=== PATIENT | female | born 1970 | race Caucasian/White ===

== ENCOUNTER 2017-01-21 13:31 | Emergency (ER) | payer OTHER, MEDICARE ==
[~2017-01-21] VITALS: Ht 175.3 cm; Wt 102.7 kg
[2017-01-21 13:31] VITALS: BP 158/97; PULSE 126; RESP 24; TEMP 98.7; O2SAT 95
[~2017-01-21 13:31] MED LIST: APRI0.372 PO; CALCTAB23 PO; CYAN1000P SQ; DICY10CA12 PO; FLOR250C PO; HYDR-3580 PO; LEVA500T PO; LISI10TA3 PO; LOPE7.5C PO; LYRI50CA PO; METR-1 PO; NYST15T TOPICAL; OMEG100037 PO; PERC5TAB12 PO; PRED20 PO; PROM25TA5 PO; ZANT150T2 PO
[2017-01-21 13:35] VITALS: BP 158/97; PULSE 120; RESP 24; O2SAT 95
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
[2017-01-21] MEDS ORDERED: ONDANSETRON HCL 4 MG/2 ML VIAL IV PUSH ONE (14:00)
[2017-01-21] MEDS ORDERED: MORPHINE SULFATE 4 MG/ML INJ IV PUSH ONE (14:00)
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
[2017-01-21 14:27] LABS: AUTOMATED NEUTROPHIL # 10.8 TH/MM3 (1.8-7.7); BASOPHIL # 0.1 TH/MM3 (0-0.2); BASOPHIL % 0.6 % (0.0-2.0); EOSINOPHIL # 0.1 TH/MM3 (0-0.4); EOSINOPHIL % 0.5 % (0.0-4.0); HEMATOCRIT 39.8 % (35.0-46.0); LYMPH % 32.1 % (9.0-44.0); LYMPHOCYTE # 6.3 TH/MM3 (1.0-4.8); MEAN CELL VOLUME 83.8 FL (80.0-100.0); MEAN CORPUSCULAR HEMOGLOBIN 27.9 PG (27.0-34.0); MEAN CORPUSCULAR HGB CONC 33.3 % (32.0-36.0); MONO % 12.3 % (0.0-8.0); NEUT % 54.5 % (16.0-70.0); PLATELET COUNT 429 TH/MM3 (150-450); RED BLOOD COUNT 4.76 MIL/MM3 (4.00-5.30); RED CELL DISTRIBUTION WIDTH 14.1 % (11.6-17.2); WHITE BLOOD COUNT 19.8 TH/MM3 (4.0-11.0)
[2017-01-21 14:28] LABS: HEMO FLAGS AUTO DIFF
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
[2017-01-21 14:40] LABS: BICARBONATE 23.5 MEQ/L (21.0-32.0)
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
[2017-01-21 15:00] VITALS: BP 127/81; PULSE 99; RESP 18; O2SAT 96
[2017-01-21] MEDS ORDERED: oxyCODONE/ACETAMINOPHEN 10 MG/325 MG TAB PO ONE (15:00)
[2017-01-21 15:15] LABS: BANDS 2 % (0-6); EOSINOPHILS 1 % (0-4); NEUTROPHIL # MANUAL DIFF 12.1 TH/MM3 (1.8-7.7); POLYS (SEG NEUTROPHILS) 59 % (16-70); WBC DIFF SAMPLE 100
[2017-01-21 15:17] LABS: PLATELET ESTIMATE SMEAR NORMAL (NORMAL); PLATELET MORPHOLOGY NORMAL (NORMAL); SCAN/DIFF FINAL DIFF MANUAL
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
[2017-01-21] MEDS ORDERED: IOHEXOL 350 MG/ML 10 ML VIAL (for RAD DIAG) IV ONE (16:02)
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
[2017-01-21 17:00] VITALS: BP 126/84; PULSE 84; RESP 18; O2SAT 96
== END 2017-01-21 17:18 | disposition home or self-care (01) ==
LOC: NEPE 13:31
DX: R10.84 Generalized abdominal pain (principal); S80.11XA Contusion of right lower leg, initial encounter; V49.40XA Driver injured in collision with unspecified motor vehicles in traffic accident, initial encounter
CPT/HCPCS: 71010; 72170; 73630; 74177; 80048; 84702; 85007; 85027; 96374; 96375; 99284; J2270; J2405; Q9967

== ENCOUNTER 2017-03-08 18:35 | Emergency (ER) | payer MEDICARE, OTHER ==
[~2017-03-08] VITALS: Ht 175.3 cm; Wt 108.7 kg
[~2017-03-08 18:35] MED LIST changes: -DICY10CA12 PO; -HYDR-3580 PO; -LEVA500T PO; -METR-1 PO; -NYST15T TOPICAL
[2017-03-08 18:42] VITALS: BP 179/116; PULSE 110; RESP 16; TEMP 98.6; O2SAT 98
[2017-03-08 20:48] VITALS: BP 197/93; PULSE 102; O2SAT 98
[2017-03-08] MEDS ORDERED: CYCL5TAB PO (20:53)
[2017-03-08] MEDS ORDERED: OXYC-395 PO (20:53)
[2017-03-08] MEDS ORDERED: SODIUM CHLOR 0.9% 1000 ML INJ 1,000 ML IV SCH ×2 (21:20)
[2017-03-08] MEDS ORDERED: SODIUM CHLORIDE 0.9% FLUSH 10 ML FLUSH IV FLUSH PRN (21:30)
[2017-03-08] MEDS ORDERED: methylPREDNISolone SOD SUCC 125 MG/2 ML VIAL IV PUSH ONE (21:30)
[2017-03-08] MEDS ORDERED: ONDANSETRON HCL 4 MG/2 ML VIAL IVP ONE (21:30)
[2017-03-08] MEDS ORDERED: HYDROmorphone HCL PF 2 MG/ML VIAL IVS ONE (21:30)
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
[2017-03-08 21:49] LABS: CHLORIDE 108 MEQ/L (98-107); POTASSIUM 3.5 MEQ/L (3.5-5.1); SODIUM (NA) 142 MEQ/L (136-145)
[2017-03-08 21:52] LABS: ANION GAP 11 MEQ/L (5-15); BICARBONATE 22.8 MEQ/L (21.0-32.0); BLOOD UREA NITROGEN 14 MG/DL (7-18)
[2017-03-08 21:55] LABS: ALT (GPT) 23 U/L (10-53)
[2017-03-08 21:56] LABS: AST (GOT) 12 U/L (15-37); GLOMERULAR FILTRATION RATE 82 ML/MIN (>89)
[2017-03-08 21:57] LABS: TOTAL BILIRUBIN ADULT 0.4 MG/DL (0.2-1.0)
[2017-03-08 21:58] LABS: ALKALINE PHOSPHATASE 54 U/L (45-117)
[2017-03-08 22:09] LABS: AUTOMATED NEUTROPHIL # 7.6 TH/MM3 (1.8-7.7); BASOPHIL # 0.1 TH/MM3 (0-0.2); BASOPHIL % 0.5 % (0.0-2.0); EOSINOPHIL # 0.2 TH/MM3 (0-0.4); EOSINOPHIL % 1.2 % (0.0-4.0); HEMATOCRIT 41.7 % (35.0-46.0); LYMPH % 32.5 % (9.0-44.0); LYMPHOCYTE # 4.5 TH/MM3 (1.0-4.8); MEAN CELL VOLUME 82.5 FL (80.0-100.0); MEAN CORPUSCULAR HEMOGLOBIN 26.5 PG (27.0-34.0); MEAN CORPUSCULAR HGB CONC 32.2 % (32.0-36.0); MONO % 9.8 % (0.0-8.0); PLATELET COUNT 339 TH/MM3 (150-450); RED BLOOD COUNT 5.05 MIL/MM3 (4.00-5.30); RED CELL DISTRIBUTION WIDTH 15.4 % (11.6-17.2); WHITE BLOOD COUNT 13.8 TH/MM3 (4.0-11.0)
[2017-03-08 22:26] LABS: HEMO FLAGS DIFF FINAL
[2017-03-08] MEDS ORDERED: SODIUM CHLOR 0.9% 1000 ML INJ 1,000 ML IV ONE (22:30)
[2017-03-08] MEDS ORDERED: HYDROmorphone HCL PF 1 MG/ML VIAL IV PUSH ONE (22:45)
[2017-03-08] MEDS ORDERED: IOHEXOL 350 MG/ML 10 ML VIAL (for RAD DIAG) IV ONE (23:14)
--- NOTE | 2017-03-08 23:23 | RADHPO ---
EXAM DATE/TIME: 03/08/2017 22:54 [facility] COMPARISON: CT ABDOMEN & PELVIS W CONTRAST, January 21, 2017, 15:58. INDICATIONS : Abdominal pain. Loss of appetite. Diarrhea. IV CONTRAST: 100 cc Omnipaque 350 (iohexol) IV ORAL CONTRAST: No oral contrast ingested. RADIATION DOSE: 21.72 CTDIvol (mGy) MEDICAL HISTORY : Crohn's disease. Irritable bowel syndrome. Gastroesophageal reflux disease.Hypertension. SURGICAL HISTORY : Appendectomy. Cholecystectomy.Bowel resection. ENCOUNTER: Initial ACUITY: 2 days PAIN SCALE: 8/10 LOCATION: Bilateral abdomen and pelvis. TECHNIQUE: Volumetric scanning of the abdomen and pelvis was performed. Using automated exposure control and ad justment of the mA and/or kV according to patient size, radiation dose was kept as low as reasonably achievable to obtain optimal diagnostic quality images. FINDINGS: LOWER LUNGS: The visualized lower lungs are clear. LIVER: Homogeneous density without lesion. There is no dilation of the biliary tree. Cholecystectomy clips. SPLEEN: Normal size without lesion. PANCREAS: Within normal limits. KIDNEYS: Normal in size and shape. There is no mass, stone or hydronephrosis. ADRENAL GLANDS: Within normal limits. VASCULAR: There is no aortic aneurysm. BOWEL/MESENTERY: Sutures in the right colon . The stomach, small bowel, and colon demonstrate no acute abnormality. There is no free intraperitoneal air or fluid. ABDOMINAL WALL: Small fatty hernia in the anterior abdominal wall RETROPERITONEUM: There is no lymphadenopathy. BLADDER: No wall thickening or mass. REPRODUCTIVE: Within normal limits. INGUINAL: There is no lymphadenopathy or hernia. MUSCULOSKELETAL: Within normal limits for patient age. CONCLUSION: Normal examination status post cholecystectomy and right colonic surgery. Small fatty hernia in the a nterior abdominal wall unchanged since January Miguel Castillo MD on March 08, 2017 at 23:20 Board Certified Radiologist. This report was verified electronically.
[2017-03-08] MEDS ORDERED: MEDR4PAK PO (23:34)
[2017-03-08] MEDS ORDERED: BACT800T5 PO (23:34)
[2017-03-08] MEDS ORDERED: ZOFR4TAB3 SL (23:34)
[2017-03-08 23:45] VITALS: BP 124/83; PULSE 90; O2SAT 95
[2017-03-08] MEDS ORDERED: SULFAMETHOXAZOLE-TRIMETHOPRIM DS 800-160 MG TAB PO ONE (23:45)
== END 2017-03-09 00:04 | disposition home or self-care (01) ==
LOC: PHED 18:35
DX: R10.84 Generalized abdominal pain (principal); K50.90 Crohn's disease, unspecified, without complications; M79.7 Fibromyalgia; I10 Essential (primary) hypertension; K21.9 Gastro-esophageal reflux disease without esophagitis; D64.9 Anemia, unspecified; R22.2 Localized swelling, mass and lump, trunk; Z72.0 Tobacco use
CPT/HCPCS: 74177; 80053; 85025; 96361; 96374; 96375; 96376; 99284; J1170; J2405; J2930; J7030; Q9967

== ENCOUNTER 2017-03-25 03:21 | Emergency (ER) | payer MEDICARE, OTHER ==
[~2017-03-25] VITALS: Ht 175.3 cm; Wt 109.2 kg
[~2017-03-25 03:21] MED LIST changes: +BACT800T5 PO; +CYCL5TAB PO; -LYRI50CA PO; +MEDR4PAK PO; +OXYC-395 PO; -PERC5TAB12 PO; -PRED20 PO; +ZOFR4TAB3 SL
[2017-03-25 03:28] VITALS: BP 140/100; PULSE 137; RESP 20; TEMP 98.1; O2SAT 97
[2017-03-25] MEDS ORDERED: SODIUM CHLOR 0.9% 1000 ML INJ 1,000 ML IV SCH ×2 (03:50→05:30)
[2017-03-25] MEDS: SODIUM CHLORIDE 0.9% FLUSH 10 ML FLUSH IV FLUSH PRN ×2 (03:58→04:50)
[2017-03-25] MEDS ORDERED: HYDROmorphone HCL PF 1 MG/ML VIAL IVS ONE (04:00)
[2017-03-25] MEDS ORDERED: ONDANSETRON HCL 4 MG/2 ML VIAL IVP ONE (04:00)
[2017-03-25 04:03] VITALS: BP 128/80; PULSE 126; RESP 20; O2SAT 97
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
[2017-03-25 04:11] LABS: AUTOMATED NEUTROPHIL # 17.2 TH/MM3 (1.8-7.7); BASOPHIL # 0.5 TH/MM3 (0-0.2); BASOPHIL % 2.3 % (0.0-2.0); EOSINOPHIL % 0.2 % (0.0-4.0); HEMATOCRIT 46.7 % (35.0-46.0); LYMPH % 6.6 % (9.0-44.0); LYMPHOCYTE # 1.3 TH/MM3 (1.0-4.8); MEAN CELL VOLUME 82.3 FL (80.0-100.0); MEAN CORPUSCULAR HEMOGLOBIN 26.3 PG (27.0-34.0); MEAN CORPUSCULAR HGB CONC 31.9 % (32.0-36.0); MONO % 3.1 % (0.0-8.0); NEUT % 87.8 % (16.0-70.0); PLATELET COUNT 503 TH/MM3 (150-450); RED BLOOD COUNT 5.67 MIL/MM3 (4.00-5.30); RED CELL DISTRIBUTION WIDTH 15.1 % (11.6-17.2); WHITE BLOOD COUNT 19.6 TH/MM3 (4.0-11.0)
[2017-03-25 04:12] LABS: CHLORIDE 106 MEQ/L (98-107); POTASSIUM 4.7 MEQ/L (3.5-5.1); SODIUM (NA) 138 MEQ/L (136-145)
[2017-03-25 04:14] LABS: HEMO FLAGS DIFF FINAL
[2017-03-25] MEDS ORDERED: methylPREDNISolone SOD SUCC 125 MG/2 ML VIAL IVP ONE (04:15)
[2017-03-25 04:16] LABS: ANION GAP 12 MEQ/L (5-15); BICARBONATE 20.2 MEQ/L (21.0-32.0); BLOOD UREA NITROGEN 15 MG/DL (7-18)
[2017-03-25 04:19] LABS: ALT (GPT) 42 U/L (10-53); AST (GOT) 25 U/L (15-37); GLOMERULAR FILTRATION RATE 62 ML/MIN (>89)
[2017-03-25 04:20] LABS: TOTAL BILIRUBIN ADULT 0.3 MG/DL (0.2-1.0)
[2017-03-25 04:21] LABS: ALKALINE PHOSPHATASE 64 U/L (45-117)
[2017-03-25 04:50] VITALS: BP 151/90; PULSE 109; RESP 18; O2SAT 95
[2017-03-25] MEDS ORDERED: ONDANSETRON HCL 4 MG/2 ML VIAL IV ONE (05:00)
[2017-03-25] MEDS ORDERED: HYDROmorphone HCL PF 1 MG/ML VIAL IVP ONE (05:30)
[2017-03-25 06:11] VITALS: RESP 18
[2017-03-25] MEDS ORDERED: PROM1SUP8 RECTAL (06:18)
[2017-03-25] MEDS ORDERED: PROM25TA5 PO (06:18)
[2017-03-25 06:45] LABS: BLOOD, URINE SMALL (NEG); GLUCOSE,URINE NEG (NEG); KETONE, URINE NEG (NEG); NITRITE,URINE NEG (NEG)
[2017-03-25 06:46] LABS: METHOD OF COLLECTION CLEAN CATCH; URINE COLOR YELLOW (YELLW/STRAW)
[2017-03-25 06:53] LABS: COMMENT (UR) CULTURE INDICATED; CULTURE IF INDICATED CULTURE INDICATED; HYALINE CAST, URINE 0-2 /lpf (RARE); SQUAMOUS EPITHELIAL CELL URINE 0-5 /hpf (0-5)
== END 2017-03-25 06:52 | disposition home or self-care (01) ==
LOC: PHED 03:21
DX: E86.0 Dehydration (principal); K50.90 Crohn's disease, unspecified, without complications; R82.90 Unspecified abnormal findings in urine; M79.7 Fibromyalgia; I10 Essential (primary) hypertension; K58.0 Irritable bowel syndrome with diarrhea; Z72.0 Tobacco use
CPT/HCPCS: 80053; 81001; 83690; 85025; 87086; 96361; 96374; 96375; 96376; 99284; J1170; J2405; J2930; J7030

== ENCOUNTER 2017-04-09 11:12 | Inpatient (IN) | payer MEDICARE, OTHER ==
[~2017-04-09] VITALS: Ht 175.3 cm; Wt 103.0 kg
[~2017-04-09 11:12] MED LIST changes: -BACT800T5 PO; +PROM1SUP8 RECTAL; -ZOFR4TAB3 SL
[2017-04-09 11:15] VITALS: BP 156/85; PULSE 120; RESP 24; TEMP 98; O2SAT 98
[2017-04-09] MEDS ORDERED: SODIUM CHLOR 0.9% 1000 ML INJ 800 ML IV ONE (11:53)
[2017-04-09] MEDS ORDERED: SODIUM CHLOR 0.9% 1000 ML INJ 1,000 ML IV ONE (11:53)
[2017-04-09] MEDS ORDERED: VANCOMYCIN INJ 1,000 MG in SODIUM CHLOR 0.9% 250 ML INJ 250 ML IV ONE (12:00)
[2017-04-09] MEDS ORDERED: ONDANSETRON HCL 4 MG/2 ML VIAL IV PUSH ONE (12:00)
[2017-04-09] MEDS ORDERED: MORPHINE SULFATE 4 MG/ML INJ IV PUSH ONE ×2 (12:00→14:30)
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
[2017-04-09] MEDS ORDERED: SODIUM CHLOR 0.9% 250 ML INJ 250 ML ONE (12:43)
[2017-04-09 13:01] VITALS: BP 99/59; PULSE 99; O2SAT 99
[2017-04-09 13:13] LABS: AUTOMATED NEUTROPHIL # 10.3 TH/MM3 (1.8-7.7); BASOPHIL # 0.2 TH/MM3 (0-0.2); BASOPHIL % 0.9 % (0.0-2.0); EOSINOPHIL # 0.1 TH/MM3 (0-0.4); EOSINOPHIL % 0.5 % (0.0-4.0); HEMATOCRIT 43.2 % (35.0-46.0); LYMPHOCYTE # 5.3 TH/MM3 (1.0-4.8); MEAN CELL VOLUME 81.6 FL (80.0-100.0); MEAN CORPUSCULAR HEMOGLOBIN 27.3 PG (27.0-34.0); MEAN CORPUSCULAR HGB CONC 33.4 % (32.0-36.0); NEUT % 58.6 % (16.0-70.0); PLATELET COUNT 362 TH/MM3 (150-450); RED BLOOD COUNT 5.29 MIL/MM3 (4.00-5.30); RED CELL DISTRIBUTION WIDTH 16.1 % (11.6-17.2); WHITE BLOOD COUNT 17.5 TH/MM3 (4.0-11.0)
[2017-04-09 13:15] LABS: HEMO FLAGS AUTO DIFF
[2017-04-09 13:30] VITALS: BP 148/78; PULSE 96; RESP 20; TEMP 98.2; O2SAT 99
[2017-04-09 13:38] LABS: ALT (GPT) 33 U/L (10-53); ANION GAP 11 MEQ/L (5-15); AST (GOT) 31 U/L (15-37); BICARBONATE 21.7 MEQ/L (21.0-32.0); BLOOD UREA NITROGEN 11 MG/DL (7-18); CHLORIDE 107 MEQ/L (98-107); GLOMERULAR FILTRATION RATE 86 ML/MIN (>89); POTASSIUM 3.8 MEQ/L (3.5-5.1); SODIUM (NA) 140 MEQ/L (136-145)
[2017-04-09 13:39] LABS: ALKALINE PHOSPHATASE 61 U/L (45-117); BETA HCG QUANT 5 MIU/ML (0-5); TOTAL BILIRUBIN ADULT 0.4 MG/DL (0.2-1.0)
[2017-04-09 14:04] LABS: BANDS 4 % (0-6); BASOPHILS 1 % (0-2); NEUTROPHIL # MANUAL DIFF 10.5 TH/MM3 (1.8-7.7); POLYS (SEG NEUTROPHILS) 56 % (16-70); WBC DIFF SAMPLE 100
[2017-04-09 14:05] LABS: PLATELET ESTIMATE SMEAR NORMAL (NORMAL); PLATELET MORPHOLOGY NORMAL (NORMAL); SCAN/DIFF FINAL DIFF MANUAL
[2017-04-09 15:02] LABS: APTT (PATIENT) 24.3 SEC (24.3-30.1); PROTHROMBIN TIME - PATIENT 11.4 SEC (9.8-11.6)
[2017-04-09] MEDS ORDERED: IOHEXOL 350 MG/ML 10 ML VIAL (for RAD DIAG) IV ONE (15:15)
[2017-04-09] MEDS ORDERED: ZANA4CAP PO (16:03)
--- NOTE | 2017-04-09 16:08 | RADRPT ---
EXAM DATE/TIME: 04/09/2017 15:14 [facility] COMPARISON: CT ENTEROGRAPHY W CONTRAST, November 09, 2016, 18:28. CT ABDOMEN & PELVIS W CONTRAST, January 21, 2017, 15:58. CT ABDOMEN & PELVIS W CONTRAST, March 08, 2017, 22:54. INDICATIONS : Lower abdomen pain today. IV CONTRAST: 96 cc Omnipaque 350 (iohexol) IV ORAL CONTRAST: No oral contrast ingested. RADIATION DOSE: 12.32 CTDIvol (mGy) MEDICAL HISTORY : Crohn's disease. Hypertension. SURGICAL HISTORY : Colon resection. Appendectomy. Cholecystectomy. ENCOUNTER: Initial ACUITY: 1 day PAIN SCALE: 7/10 LOCATION: Bilateral lower quadrant TECHNIQUE: Volumetric scanning of the abdomen and pelvis was performed. Using automated exposure control and adjustment of the mA and/or kV according to patient size, radiation dose was kept as low as reasonably achievable to obtain optimal diagnostic quality images. FINDINGS: There is diffuse decreased attenuation of the liver consistent with diffuse fatty infiltration. The patient is status post cholecystectomy with clips seen in the right upper quadrant. The spleen, panc reas, adrenal glands and kidneys appear grossly normal. There is no hydronephrosis or renal stones s een. The patient has bowel anastomosis sutures seen in the proximal ascending colon region. This segment of the colon is slightly dilated but unchanged in appearance from the prior examination. The remaini ng aspects of the colon are not distended. There is some questionable thickening of the proximal col on in the expected location of the hepatic flexure. This could be secondary to lack of distention ve rsus an underlying mass. Significantly dilated or thickened small bowel is not appreciated. The pel robin structures appear grossly intact. Multiple calcifications are seen in the pelvis consistent with numerous phleboliths. There is a midline abdominal hernia containing only mesenteric fat seen just above the umbilicus. The defect measures 2.7 cm at the anterior abdominal wall. This appearance is unchanged. The lung bases demonstrate mild dependent atelectasis. The bony structures are grossly intact. CONCLUSION: 1. Fatty infiltration of the liver. 2. Status post cholecystectomy. 3. Status post resection at the proximal ascending colon. There is some questionable thickening at the proximal colon in the hepatic flexure region. This could be spurious with simple lack of distent ion. An underlying lesion cannot be excluded. This area could be directly inspected at some point. Froylan Clayton MD on April 09, 2017 at 15:44 Board Certified Radiologist. This report was verified electronically.
[2017-04-09 16:30] VITALS: BP 130/72; PULSE 98; RESP 20; O2SAT 99
--- NOTE | 2017-04-09 16:36 | HHI.HP ---
[facility] Service Family Medicine Primary Care Physician No Primary Care Physician Admission Diagnosis labial cellulitis, abdominal pain Diagnoses: International Travel<30 Days: No Contact w/Intl Traveler<30days: No Known Affected Area: No History of Present Illness 46-year-old female with history of Crohn's disease presents for the third time this month to seek treatment for abscess and cellulitis of the left labia. She states intermittently over the last month she has had swelling in the left labia with times it has drained. She stated the swelling and discomfort in the left labia began about 1 month ago. She was seen at the [facility] emergency room and sent home with Bactrim for 7 days. She completed the course of antibiotics and the area swelled up and drained. 2 weeks later the swelling increased in size again. She was seen again at the [facility] emergency room and was discharged on nausea medication and without antibiotics. Since that time she has had more swelling, however 2 days ago the area spontaneously drained and it is much smaller at this time. Over the last month she has had nausea, loss of appetite, fevers on and off. She feels like her strength is going down. And she is having less energy. She has also had 2 areas in her right axilla that have had swelling. But these areas have gone down at this time. She has had 8 out of 10 pain in her abdomen, low back, and pelvic region. This pain comes and goes. She is constantly uncomfortable. She describes the pain as "pressure." Her GI physician is Dr. Murray. She recently had a colonoscopy October 2016 which she states is within normal limits for her. Review of Systems Constitutional: COMPLAINS OF: Fever, Chills, Change in appetite Eyes: DENIES: Blurred vision, Diplopia Respiratory: DENIES: Apneas, Cough Cardiovascular: DENIES: Chest pain, Palpitations Gastrointestinal: COMPLAINS OF: Abdominal pain, Diarrhea, Nausea, DENIES: Black stools, Bloody stools, Constipation, Vomiting Integumentary: COMPLAINS OF: Rash Neurologic: DENIES: Abnormal gait, Headache, Localized weakness Psychiatric: DENIES: Anxiety, Confusion Past Family Social History Past Medical History Hypertension Fibromyalgia Reoccurring UTIs Depression Crohn's Crohn's induced eczema GI doctor: Dr. Murray Past Surgical History Appendectomy Cholecystectomy Tonsillectomy Bowel resection 2007 Perianal abscess 2012 Fissure anal 2014 Anal fistula Finger abscess 2015 Reported Medications Reported Meds & Active Scripts Active Phenergan (Promethazine HCl) 25 Mg Tab 25 Mg PO Q6H PRN Reported Zanaflex (Tizanidine HCl) 4 Mg Cap 4 Mg PO HS Oxycodone (Oxycodone HCl) 10 Mg Tab 10 Mg PO Q6-8HR PRN Zantac (Ranitidine HCl) 150 Mg Tab 150 Mg PO HS Imodium A-D (Loperamide HCl) 2 Mg Cap 2 Mg PO DIRECTED PRN One capsule after each loose stool. Not to exceed 8 tablets per day. Florastor (Saccharomyces Boulardii) 250 Mg Cap 250 Mg PO BID Fish Oil 1000 mg ([place]-3 Fatty Acids) 1 Cap Cap 1,000 Mg PO DAILY Cyanocobalamin Inj (Cyanocobalamin) 1,000 Mcg/Ml Inj 1,000 Mcg SQ MONTHLY Calcium 500 + D (Calcium Carbonate-Vitamin D) 500-125 Mg-Unit Tab 1 Tab PO DAILY Apriso (Mesalamine) 0.375 Gm Caper 1.5 Gm PO DAILY Allergies: Coded Allergies: Skelaxin (Verified Allergy, Severe, Rash, 03/25/17) RASH- MILD REACTION Toradol (Verified Allergy, Severe, Itching, 03/25/17) HIVES- INTERMEDIATE REACTION Tramadol (Verified Allergy, Severe, ITCHING, 03/25/17) HIVES- INTERMEDIATE REACTION Robaxin (Verified Allergy, Intermediate, Rash, 03/25/17) MILD REACTION Cymbalta (Verified Allergy, Mild, dizziness, 03/25/17) Active Ordered Medications Active Medications Iohexol (Omnipaque 350 Inj) 96 ml STK-MED ONCE IV Last administered on 15:15; Admin Dose 96 ML; Start 04/09/17 at 15:15; Stop 04/09/17 at 15:21; Status DC Morphine Sulfate (Morphine Inj) 4 mg ONCE ONCE IV PUSH Last administered on 12:30; Admin Dose 4 MG; Start 04/09/17 at 12:00; Stop 04/09/17 at 12:01 ; Status DC Morphine Sulfate (Morphine Inj) 4 mg ONCE ONCE IV PUSH Last administered on 15:00; Admin Dose 4 MG; Start 04/09/17 at 14:30; Stop 04/09/17 at 14:31 ; Status DC Ondansetron HCl 4 mg 4 mg ONCE ONCE IV PUSH Last administered on 04/09/17 12: 30; Admin Dose 4 MG; Start 04/09/17 at 12:00; Stop 04/09/17 at 12:01; Status DC Sodium Chloride 1,000 ml @ 1,000 mls/hr Q1H ONCE IV Last administered on 12:20; Admin Dose 1,000 MLS/HR; Start 04/09/17 at 11:53; Stop 04/09/17 at 12:52; Status DC Sodium Chloride (NS 1000 ml Inj) 800 ml @ 1,000 mls/hr Q48M ONCE IV Last administered on 04/09/17 13:10; Admin Dose 1,000 MLS/HR; Start 04/09/17 at 11: 53; Stop 04/09/17 at 12:40; Status DC Sodium Chloride (NS 250 ml Inj) 250 ml @ As Directed STK-MED ONCE .ROUTE Last administered on 04/09/17 12:59; Admin Dose 250 MLS/HR; Start 04/09/17 at 12:43 ; Stop 04/09/17 at 12:44; Status DC Vancomycin HCl 1000 mg/Sodium Chloride 250 ml @ 250 mls/hr ONCE ONCE IV Last administered on 04/09/17 12:50; Admin Dose 250 MLS/HR; Start 04/09/17 at 12:00 ; Stop 04/09/17 at 12:59; Status DC Family History Mom: Hypothyroidism, asthma Dad: Emphysema, hypertension, eczema Social History Tobacco use: A few cigarettes a day for 30 years, currently trying to quit Alcohol use: Denies Illicit drug use: Denies Physical Exam Vital Signs Vital Signs Date Time Temp Pulse Resp B/P Pulse Ox O2 Delivery O2 Flow Rate FiO2 04/09/17 15:40 20 04/09/17 13:30 18 04/09/17 13:01 99 99/59 99 Nasal Cannula 2 04/09/17 13:01 93 Nasal Cannula 2 04/09/17 11:15 98.0 120 24 156/85 98 Room Air Physical Exam GENERAL: This is a well-nourished, well-developed patient, in no apparent distress. SKIN: Left labia: Induration, swelling, erythema consistent with cellulitis. Axillary lymphadenopathy on the right. HEAD: Atraumatic. Normocephalic. No temporal or scalp tenderness. EYES: Pupils equal round and reactive. Extraocular motions intact. No scleral icterus. No injection or drainage. ENT: Nose without bleeding, purulent drainage or septal hematoma. Throat without erythema, tonsillar hypertrophy or exudate. Uvula midline. Airway patent. NECK: Trachea midline. No JVD or lymphadenopathy. Supple, nontender, no meningeal signs. CARDIOVASCULAR: Regular rate and rhythm without murmurs, gallops, or rubs. RESPIRATORY: Clear to auscultation. Breath sounds equal bilaterally. No wheezes , rales, or rhonchi. GASTROINTESTINAL: Abdomen soft, mildly tender to palpation, nondistended. No hepato-splenomegaly, or palpable masses. No guarding. MUSCULOSKELETAL: Extremities without clubbing, cyanosis, or edema. No joint tenderness, effusion, or edema noted. No calf tenderness. Negative Homans sign bilaterally. NEUROLOGICAL: Awake and alert. Cranial nerves II through XII intact. Motor and sensory grossly within normal limits. Five out of 5 muscle strength in all muscle groups. Normal speech. Laboratory Laboratory Tests Test 04/09/17 04/09/17 12:30 14:40 White Blood Count 17.5 Red Blood Count 5.29 Hemoglobin 14.4 Hematocrit 43.2 Mean Corpuscular Volume 81.6 Mean Corpuscular Hemoglobin 27.3 Mean Corpuscular Hemoglobin 33.4 Concent Red Cell Distribution Width 16.1 Platelet Count 362 Mean Platelet Volume 8.2 Neutrophils (%) (Auto) 58.6 Lymphocytes (%) (Auto) 30.0 Monocytes (%) (Auto) 10.0 Eosinophils (%) (Auto) 0.5 Basophils (%) (Auto) 0.9 Neutrophils # (Auto) 10.3 Lymphocytes # (Auto) 5.3 Monocytes # (Auto) 1.8 Eosinophils # (Auto) 0.1 Basophils # (Auto) 0.2 CBC Comment AUTO DIFF Differential Total Cells 100 Counted Neutrophils % (Manual) 56 Band Neutrophils % 4 Lymphocytes % 28 Monocytes % 11 Basophils % 1 Neutrophils # (Manual) 10.5 Differential Comment FINAL DIFF MANUAL Platelet Estimate NORMAL Platelet Morphology Comment NORMAL Sodium Level 140 Potassium Level 3.8 Chloride Level 107 Carbon Dioxide Level 21.7 Anion Gap 11 Blood Urea Nitrogen 11 Creatinine 0.72 Estimat Glomerular Filtration 86 Rate Random Glucose 79 Lactic Acid Level 1.4 Calcium Level 10.5 Total Bilirubin 0.4 Aspartate Amino Transf 31 (AST/SGOT) Alanine Aminotransferase 33 (ALT/SGPT) Alkaline Phosphatase 61 Total Protein 7.8 Albumin 3.7 Lipase 297 Human Chorionic Gonadotropin, 5 Quant Prothrombin Time 11.4 Prothromb Time International 1.0 Ratio Activated Partial 24.3 Thromboplast Time Date/Time Procedure Status Source Growth 04/09/17 12:30 Aerobic Blood Culture Received Blood Peripheral Pending 04/09/17 12:30 Anaerobic Blood Culture Received Blood Peripheral Pending Result Diagram: 04/09/17 1230 04/09/17 1230 Imaging Last Impressions Abdomen/Pelvis CT 04/09/17 1153 Signed Impressions: Service Date/Time: Tuesday, April 09, 2017 15:14 - CONCLUSION: 1. Fatty infiltration of the liver. 2. Status post cholecystectomy. 3. Status post resection at the proximal ascending colon. There is some questionable thickening at the proximal colon in the hepatic flexure region. This could be spurious with simple lack of distention. An underlying lesion cannot be excluded. This area could be directly inspected at some point. Froylan Clayton MD Assessment and Plan Assessment and Plan 46-year-old female with history of Crohn's disease presents with a third time in less than 1 month for labial swelling, fevers, cellulitis. She has failed outpatient antibiotics. I suspect the patient has had abscesses in the left labia which have spontaneously drained. Currently there is no sign of abscess. Code Status Full Problem List: (1) Cellulitis of labia Status: Acute Plan: Failed outpatient antibotics. Continue vancomycin 2000 mg every 8 hours Blood Culture pending (2) Sepsis Status: Acute Plan: On admission, the patient did meet sepsis criteria with leukocytosis, tachycardia, and cellulitis as the source. See plan above for sale. (3) FEN/PPX Status: Acute Plan: Fluids: Normal saline 150 mils per hour Electrolytes: Monitor and replace when necessary Nutrition: Regular diet Prophylaxis: Heparin, bilateral SCDs Chronic medical problems: Crohn's disease: Continue mesalamine, probiotics, Imodium when necessary, Phenergan when necessary Chronic pain: Continue oxycodone 10 mg by mouth every 6 hours when necessary pain 6-10. Dilaudid when necessary breakthrough pain. Muscle spasm: Continue tizanidine Physician Certification 2 Midnight Certification Type: Admission for Inpatient Services Order for Inpatient Services The services are ordered in accordance with Medicare regulations or non- Medicare payer requirements, as applicable. In the case of services not specified as inpatient-only, they are appropriately provided as inpatient services in accordance with the 2-midnight benchmark. Estimated LOS (days): 2 days is the estimated time the patient will need to remain in the hospital, assuming treatment plan goals are met and no additional complications. Post-Hospital Plan: Home José Ramsey MD R2 April 09, 2017 16:36
[2017-04-09] MEDS ORDERED: PROMETHAZINE HCL 25 MG TAB PO PRN (17:15)
[2017-04-09] MEDS ORDERED: LOPERAMIDE HCL 2 MG CAP PO PRN (17:15)
[2017-04-09] MEDS ORDERED: HYDROmorphone HCL 2 MG TAB PO ONE (17:15)
[2017-04-09] MEDS ORDERED: OXYCODONE 10 MG PO PRN (17:15)
[2017-04-09] MEDS ORDERED: NALOXONE HCL 0.4 MG/ML AMP IV PRN ×2 (17:15)
[2017-04-09] MEDS: HEPARIN SODIUM - SQ 10,000 UNITS/ML VIAL SQ SCH (18:00)
[2017-04-09] MEDS ORDERED: Vancomycin Consult Pharmacy 1 EA OTHER SCH (19:00)
[2017-04-09 19:01] VITALS: BP 145/84; PULSE 84; RESP 18; TEMP 96.8; O2SAT 93
[2017-04-09] MEDS ORDERED: NON-FORMULARY DRUG (Saccharomyces Boulardii (Florastor) 250 MG) PO SCH (21:00)
[2017-04-09] MEDS ORDERED: NON-FORMULARY DRUG (Ranitidine (Zantac) 150 MG) PO SCH (21:00)
[2017-04-09] MEDS ORDERED: SACCHAROMYCES BOULARDII PO SCH (21:00)
[2017-04-09] MEDS: FAMOTIDINE 20 MG TAB PO SCH (22:13)
[2017-04-09] MEDS: TEMAZEPAM 15 MG CAP PO PRN (22:13)
[2017-04-09] MEDS: SODIUM CHLOR 0.9% 1000 ML INJ 1,000 ML IV SCH (22:18)
[2017-04-09] MEDS: VANCOMYCIN INJ 1,600 MG in SODIUM CHLORID 0.9% 500 ML INJ 500 ML IV SCH (22:19)
[2017-04-09] MEDS: SODIUM CHLORIDE 0.9% FLUSH 10 ML FLUSH IV FLUSH SCH (22:19)
[2017-04-10] VITALS: BP 126/83; PULSE 83; RESP 18; TEMP 98.5; O2SAT 95
[2017-04-10] MEDS: HYDROmorphone HCL PF 1 MG/ML VIAL IV PRN ×6 (00:18→19:49)
[2017-04-10] MEDS: SODIUM CHLOR 0.9% 1000 ML INJ 1,000 ML IV SCH ×5 (00:40→20:54)
[2017-04-10] MEDS: HEPARIN SODIUM - SQ 10,000 UNITS/ML VIAL SQ SCH ×2 (04:51→16:54)
[2017-04-10 05:07] LABS: BASOPHIL # 0.1 TH/MM3 (0-0.2); BASOPHIL % 1.1 % (0.0-2.0); EOSINOPHIL # 0.1 TH/MM3 (0-0.4); EOSINOPHIL % 1.5 % (0.0-4.0); HEMATOCRIT 37.8 % (35.0-46.0); HEMO FLAGS DIFF FINAL; LYMPH % 44.3 % (9.0-44.0); LYMPHOCYTE # 4.2 TH/MM3 (1.0-4.8); MEAN CELL VOLUME 83.1 FL (80.0-100.0); MEAN CORPUSCULAR HEMOGLOBIN 26.2 PG (27.0-34.0); MEAN CORPUSCULAR HGB CONC 31.6 % (32.0-36.0); MONO % 10.8 % (0.0-8.0); NEUT % 42.3 % (16.0-70.0); PLATELET COUNT 262 TH/MM3 (150-450); RED BLOOD COUNT 4.55 MIL/MM3 (4.00-5.30); RED CELL DISTRIBUTION WIDTH 15.7 % (11.6-17.2); WHITE BLOOD COUNT 9.5 TH/MM3 (4.0-11.0)
[2017-04-10 05:34] LABS: ALKALINE PHOSPHATASE 50 U/L (45-117); ALT (GPT) 30 U/L (10-53); ANION GAP 10 MEQ/L (5-15); AST (GOT) 28 U/L (15-37); BICARBONATE 21.6 MEQ/L (21.0-32.0); BLOOD UREA NITROGEN 9 MG/DL (7-18); CHLORIDE 111 MEQ/L (98-107); GLOMERULAR FILTRATION RATE 116 ML/MIN (>89); POTASSIUM 3.8 MEQ/L (3.5-5.1); SODIUM (NA) 143 MEQ/L (136-145); TOTAL BILIRUBIN ADULT 0.2 MG/DL (0.2-1.0)
--- NOTE | 2017-04-10 07:16 | HHI.FPPN ---
Subjective Remarks Renu Ruiz is a 46yo lady with Crohn's disease and recurrent labial cellulitis, which has failed outpatient treatment. She has been treated most recently with Bactrim x 7 days without improvement. Associated with swelling, erythema, and occasional drainage from her left labia are nausea, decreased appetite, generalized weakness and intermittent fevers. She also has 8/10 abdominal, pelvic, and low back pain, which is intermittent and described as a pressure. For further details, please see resident H&P. This morning, she feels the same as at admission. She reports chills overnight. No objective fevers measured. No dysuria. ROS: No fevers. + chills. + pain at low back, abdomen, labia/pelvis. No dysuria. No hematuria. All other systems reviewed are negative PMH/PSxH/SocHx/FamHx: Per resident H&P. Significant for: recurrent labial cellulitis/abscess, Crohn's disease with most recent colonoscopy 10/2016. HTN, fibromyalgia, depression. Appy, cholecystectomy, bowel resection 2006, perianal abscess 2011, anal fissure 2013, anal fistula. Fam hx of asthma, hypothyroidism , HTN, emphysema. + tobacco abuse - at least 10 pack year history. No alcohol or recreational drug use. Objective Vitals Vital Signs Date Time Temp Pulse Resp B/P Pulse Ox O2 Delivery O2 Flow Rate FiO2 04/10/17 00:48 16 04/10/17 00:00 98.5 83 18 126/83 95 04/09/17 19:01 96.8 84 18 145/84 93 04/09/17 16:30 98 20 130/72 99 Nasal Cannula 2 04/09/17 15:40 20 04/09/17 13:30 98.2 96 20 148/78 99 Nasal Cannula 2 04/09/17 13:30 18 04/09/17 13:01 99 99/59 99 Nasal Cannula 2 04/09/17 13:01 93 Nasal Cannula 2 04/09/17 11:15 98.0 120 24 156/85 98 Room Air I/O 04/09/17 04/09/17 04/09/17 04/10/17 04/10/17 04/10/17 07:00 15:00 23:00 07:00 15:00 23:00 Intake Total 720 ml Balance 720 ml Intake Oral 720 ml # Voids 2 # Bowel Movements 1 Result Diagram: 04/10/1741804/10/17418 Objective Remarks GENERAL: in NAD, no resp distress, nontoxic. Awake and alert. HEENT: NCAT, EOMI, no scleral icterus, no conjunctival injection. MMM. NECK: Supple, no meningeal signs. CV: RRR, S1 S2. No murmurs CHEST/PULM: CTAB, no crackles, no wheezes ABD/GI: +BS, soft, nontender, nondistended EXT: 2+ DP pulses. No edema. No calf tenderness NEURO: Awake, alert. Normal muscle tone. Grossly nonfocal. SKIN: Right axilla with area of erythema consistent with recent prior abscess/ cellulitis; no increased calor, nontender. Right lateral chest with scab, 1cm in diameter; without surrounding erythema, nontender. PSYCH: Mood and affect are appropriate. Speech fluent. Does not appear to respond to internal stimuli. : Left labia with redness, swelling, and tenderness. There is an area of induration measuring 2cm wide x 4cm long. There is no induration in the vagina. This does not cross midline. Anus with scars but no erythema, swelling, or tenderness. A/P Assessment and Plan 46 yo lady admitted for labial cellulitis, which has failed outpatient treatment. Attending Attestation Patient seen, examined, and discussed with resident team. I agree with assessment and management as documented and discussed with me. The patient has been seen and examined. The chart and all resident notes have been reviewed. I agree that inpatient care is appropriate and that a two midnight stay is expected for the reasons documented in the resident history and physical. I have discussed this with the resident and certify the resident s order for inpatient admission. Problem List: (1) Cellulitis of labia Status: Acute Plan: Failed outpatient antibotics. Continue vancomycin 2000 mg every 8 hours 04/09/17 --> WBC count has improved this morning. Blood Culture pending (2) Sepsis Status: Resolved Plan: On admission, the patient did meet sepsis criteria with leukocytosis, tachycardia, and cellulitis as the source. See plan above for management. (3) Crohn's disease Status: Chronic Plan: Follows as an outpatient with Dr. Murray. No intervention needed. CT abdomen demonstrates "questionable thickening at the proximal colon in the hepatic flexure region. This could be spurious with lack of distention. Underlying lesion cannot be excluded. This are could be visually inspected at some point". Of note, pt had colonoscopy 10/2016 which did not demonstrate a lesion. Shamika Nguyen MD April 10, 2017 07:16
[2017-04-10] MEDS: CALCIUM/VITAMIN D 250 MG/125 U TAB PO SCH (07:59)
[2017-04-10] MEDS: SODIUM CHLORIDE 0.9% FLUSH 10 ML FLUSH IV FLUSH SCH ×2 (07:59→19:48)
[2017-04-10 08:00] VITALS: BP 130/81; PULSE 86; RESP 16; TEMP 96.7; O2SAT 94
[2017-04-10] MEDS: VANCOMYCIN INJ 1,600 MG in SODIUM CHLORID 0.9% 500 ML INJ 500 ML IV SCH ×2 (08:00→20:54)
[2017-04-10] MEDS ORDERED: NON-FORMULARY DRUG (Mesalamine ER 24 HR (Apriso) 1.5 GM) PO SCH (09:00)
[2017-04-10] MEDS ORDERED: MESALAMINE PO SCH (09:00)
[2017-04-10] MEDS ORDERED: NON-FORMULARY DRUG (Omega-3 Fatty Acids (Fish Oil 1000 mg) 1,000 MG) PO SCH (09:00)
[2017-04-10] MEDS ORDERED: CALCIUM CARBONATE VITAMIN D PO SCH (09:00)
[2017-04-10 12:00] VITALS: BP 153/85; PULSE 85; RESP 17; TEMP 96.2; O2SAT 94
[2017-04-10 16:00] VITALS: BP 124/78; PULSE 90; RESP 19; TEMP 96.2; O2SAT 96
[2017-04-10] MEDS: FAMOTIDINE 20 MG TAB PO SCH (19:48)
[2017-04-10 20:00] VITALS: BP_SYST 120; BP_SYST 163; BP_DIAS 68; BP_DIAS 90; PULSE 87; RESP 20; TEMP 97.7; O2SAT 94
[2017-04-10] MEDS ORDERED: PHARMACY ORDERED LAB ONE (20:45)
[2017-04-10] MEDS: TEMAZEPAM 15 MG CAP PO PRN (21:31)
[2017-04-11] VITALS: BP 151/82; PULSE 79; RESP 20; TEMP 98; O2SAT 95
[2017-04-11] MEDS: HYDROmorphone HCL PF 1 MG/ML VIAL IV PRN ×7 (00:47→21:01)
[2017-04-11] MEDS: HEPARIN SODIUM - SQ 10,000 UNITS/ML VIAL SQ SCH ×2 (04:23→17:26)
[2017-04-11 05:57] LABS: AUTOMATED NEUTROPHIL # 3.4 TH/MM3 (1.8-7.7); BASOPHIL # 0.1 TH/MM3 (0-0.2); BASOPHIL % 1.2 % (0.0-2.0); EOSINOPHIL # 0.2 TH/MM3 (0-0.4); EOSINOPHIL % 2.3 % (0.0-4.0); HEMO FLAGS DIFF FINAL; LYMPH % 44.3 % (9.0-44.0); LYMPHOCYTE # 3.7 TH/MM3 (1.0-4.8); MEAN CELL VOLUME 81.5 FL (80.0-100.0); MEAN CORPUSCULAR HEMOGLOBIN 26.7 PG (27.0-34.0); MEAN CORPUSCULAR HGB CONC 32.8 % (32.0-36.0); MONO % 11.3 % (0.0-8.0); NEUT % 40.9 % (16.0-70.0); PLATELET COUNT 262 TH/MM3 (150-450); RED BLOOD COUNT 4.42 MIL/MM3 (4.00-5.30); RED CELL DISTRIBUTION WIDTH 15.7 % (11.6-17.2); WHITE BLOOD COUNT 8.3 TH/MM3 (4.0-11.0)
[2017-04-11 06:29] LABS: BICARBONATE 22.1 MEQ/L (21.0-32.0); POTASSIUM 4.1 MEQ/L (3.5-5.1)
[2017-04-11 08:00] VITALS: BP 147/104; PULSE 72; RESP 19; TEMP 96; O2SAT 96
[2017-04-11] MEDS: VANCOMYCIN INJ 1,600 MG in SODIUM CHLORID 0.9% 500 ML INJ 500 ML IV SCH ×2 (08:31→21:51)
[2017-04-11] MEDS: SODIUM CHLORIDE 0.9% FLUSH 10 ML FLUSH IV FLUSH SCH ×2 (08:31→20:01)
[2017-04-11] MEDS: CALCIUM/VITAMIN D 250 MG/125 U TAB PO SCH (08:31)
--- NOTE | 2017-04-11 08:40 | HHI.FPPN ---
Subjective Remarks Patient continues to complain of pelvic pain which require breakthrough medication. Denies fevers, but is having chills. She does not believe the labial swelling has decreased. Denies chest pain, nausea, vomiting, shortness of breath. (José Ramsey MD R2) Objective Vitals Vital Signs Date Time Temp Pulse Resp B/P Pulse Ox O2 Delivery O2 Flow Rate FiO2 04/11/17 00:00 98.0 79 20 151/82 95 04/10/17 20:00 97.7 87 20 163/90 94 04/10/17 16:00 96.2 90 19 124/78 96 04/10/17 12:00 96.2 85 17 153/85 94 I/O 04/10/17 04/10/17 04/10/17 04/11/17 04/11/17 04/11/17 07:00 15:00 23:00 07:00 15:00 23:00 Intake Total 720 ml 2640 ml 1565 ml 1225 ml Output Total 600 ml 350 ml Balance 720 ml 2640 ml 965 ml 875 ml Intake Oral 720 ml 1440 ml 440 ml 240 ml IV Total 1200 ml 1125 ml 985 ml Output Urine Total 600 ml 350 ml # Voids 2 3 # Bowel Movements 1 3 0 0 (José Ramsey MD R2) Result Diagram: 04/11/1751604/11/17516 Objective Remarks GENERAL: in NAD, no resp distress, nontoxic. Awake and alert. NECK: Supple, no meningeal signs. CV: RRR, S1 S2. No murmurs CHEST/PULM: CTAB, no crackles, no wheezes ABD/GI: +BS, soft, nontender, nondistended EXT: 2+ DP pulses. No edema. No calf tenderness NEURO: Awake, alert. Normal muscle tone. Grossly nonfocal. SKIN: Right axilla with area of erythema consistent with recent prior abscess/ cellulitis; no increased calor, nontender. Right lateral chest with scab, 1cm in diameter; without surrounding erythema, nontender. PSYCH: Mood and affect are appropriate. Speech fluent. Does not appear to respond to internal stimuli. (performed with nurse credit authorizer in room.): Left labia with redness, swelling , and tenderness. There is an area of induration measuring 2cm wide x 4cm long. There is no induration in the vagina. This does not cross midline. Anus with scars but no erythema, swelling, or tenderness. (José Ramsey MD R2) A/P Assessment and Plan 46 yo lady admitted for labial cellulitis, which has failed outpatient treatment. Discharge Planning Pending improvement with infection (José Ramsey MD R2) Attending Attestation Patient seen and examined, discussed with resident team. I agree with assessment and management as documented and discussed with me. Pt reports energy level is improving. No significant change yet in her labial cellulitis. Continue IV antibiotics. (Shamika Nguyen MD) Problem List: (1) Cellulitis of labia Status: Acute Plan: Failed outpatient antibotics. Continue vancomycin 2000 mg every 8 hours 04/09/17 --> WBC count normal Blood Culture 04/09: No growth to date (2) Sepsis Status: Resolved Plan: On admission, the patient did meet sepsis criteria with leukocytosis, tachycardia, and cellulitis as the source. See plan above for management. (3) Crohn's disease Status: Chronic Plan: Follows as an outpatient with Dr. Murray. No intervention needed. CT abdomen demonstrates "questionable thickening at the proximal colon in the hepatic flexure region. This could be spurious with lack of distention. Underlying lesion cannot be excluded. This are could be visually inspected at some point". Of note, pt had colonoscopy 10/2016 which did not demonstrate a lesion. (4) FEN/PPX Status: Acute Plan: Fluids: Tolerating by mouth Electrolytes: Monitor and replace when necessary Nutrition: Regular diet Prophylaxis: Heparin, bilateral SCDs Chronic medical problems: Chronic pain: Continue oxycodone 10 mg by mouth every 6 hours when necessary pain 6-10. Dilaudid when necessary breakthrough pain. Muscle spasm: Continue tizanidine (José Ramsey MD R2) José Ramsey MD R2 April 11, 2017 08:40 Shamika Nguyen MD April 11, 2017 16:59
[2017-04-11 12:00] VITALS: BP 176/95; PULSE 87; RESP 18; TEMP 97; O2SAT 95
[2017-04-11 16:00] VITALS: BP 136/77; PULSE 88; RESP 17; TEMP 96.2; O2SAT 98
[2017-04-11 20:00] VITALS: BP 160/80; PULSE 86; RESP 20; TEMP 98.8; O2SAT 97
[2017-04-11] MEDS: FAMOTIDINE 20 MG TAB PO SCH (20:01)
[2017-04-11] MEDS ORDERED: PHARMACY ORDERED LAB ONE (20:45)
[2017-04-12] VITALS: BP 154/78; PULSE 80; RESP 18; TEMP 97.8; O2SAT 96
[2017-04-12] MEDS: HYDROmorphone HCL PF 1 MG/ML VIAL IV PRN ×6 (00:31→20:28)
[2017-04-12] MEDS: ACETAMINOPHEN 1000 MG/100 ML VIAL IV SCH ×4 (01:57→20:00)
[2017-04-12] MEDS: HEPARIN SODIUM - SQ 10,000 UNITS/ML VIAL SQ SCH ×2 (05:29→17:45)
[2017-04-12 07:10] LABS: BICARBONATE 25.2 MEQ/L (21.0-32.0)
[2017-04-12 07:14] LABS: POTASSIUM 4.2 MEQ/L (3.5-5.1)
[2017-04-12] MEDS: VANCOMYCIN INJ 1,600 MG in SODIUM CHLORID 0.9% 500 ML INJ 500 ML IV SCH ×2 (07:56→20:27)
[2017-04-12] MEDS: CALCIUM/VITAMIN D 250 MG/125 U TAB PO SCH (07:57)
[2017-04-12] MEDS: SODIUM CHLORIDE 0.9% FLUSH 10 ML FLUSH IV FLUSH SCH ×2 (07:58→20:27)
[2017-04-12 08:00] VITALS: BP 168/118; PULSE 89; RESP 19; TEMP 96.6; O2SAT 94
--- NOTE | 2017-04-12 09:13 | HHI.FPPN ---
Subjective Remarks Patient states she "had a rough night." She thinks she is having a flare from chronic back pain from an accident long time ago. She also has chronic muscle spasms. She is having pain/spasms which radiate down her right leg to her toes. Denies loss of bowel/bladder. Denies saddle paresthesias. Denies fevers or chills. She thinks her labial cellulitis is the same as yesterday. She is still has labial tenderness. (José Ramsey MD R2) Objective Vitals Vital Signs Date Time Temp Pulse Resp B/P Pulse Ox O2 Delivery O2 Flow Rate FiO2 04/12/17 00:00 97.8 80 18 154/78 96 04/11/17 20:00 98.8 86 20 160/80 97 04/11/17 16:00 96.2 88 17 136/77 98 04/11/17 12:00 97.0 87 18 176/95 95 I/O 04/11/17 04/11/17 04/11/17 04/12/17 04/12/17 04/12/17 07:00 15:00 23:00 07:00 15:00 23:00 Intake Total 1225 ml 890 ml 480 ml 360 ml Output Total 350 ml 650 ml 500 ml Balance 875 ml 890 ml -170 ml -140 ml Intake Oral 240 ml 890 ml 480 ml 360 ml IV Total 985 ml Output Urine Total 350 ml 650 ml 500 ml # Voids 5 # Bowel Movements 0 3 0 0 (José Ramsey MD R2) Result Diagram: 04/11/17 0517 04/12/17 0553 Objective Remarks GENERAL: in NAD, no resp distress, nontoxic. Awake and alert. NECK: Supple, no meningeal signs. CV: RRR, S1 S2. No murmurs CHEST/PULM: CTAB, no crackles, no wheezes ABD/GI: +BS, soft, nontender, nondistended EXT: 2+ DP pulses. No edema. No calf tenderness NEURO: Awake, alert. Normal muscle tone. Grossly nonfocal. SKIN: Right axilla with area of erythema consistent with recent prior abscess/ cellulitis; no increased calor, nontender. Right lateral chest with scab, 1cm in diameter; without surrounding erythema, nontender. PSYCH: Mood and affect are appropriate. Speech fluent. Does not appear to respond to internal stimuli. (performed with nurse caretaker grounds in room.): Left labia with redness, swelling , and tenderness. There is an area of induration measuring 2cm wide x 4cm long. There is no induration in the vagina. This does not cross midline. Anus with scars but no erythema, swelling, or tenderness. (José Ramsey MD R2) A/P Assessment and Plan 46 yo lady admitted for labial cellulitis, which has failed outpatient treatment. Discharge Planning Pending improvement with infection; possibly today or tomorrow. (José Ramsey MD R2) Attending Attestation Patient seen and examined, discussed with resident team. I agree with assessment and management as documented and discussed with me. Pt reports energy level is better, but she complains of Right low back pain which radiates down to knee, along the back of her leg. She also has tingling in her toes that feels like pins and needles. 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 Trial of steroids for antiinflammatory effect on her labia as well as her back. (Shamika Nguyen MD) Problem List: (1) Cellulitis of labia Status: Acute Plan: Failed outpatient antibotics. Continue vancomycin 1600 mg every 8 hours 04/09/17 --> WBC count normal Blood Culture 04/09: No growth to date (2) Sepsis Status: Resolved Plan: On admission, the patient did meet sepsis criteria with leukocytosis, tachycardia, and cellulitis as the source. See plan above for management. (3) Crohn's disease Status: Chronic Plan: Follows as an outpatient with Dr. Murray. No intervention needed. CT abdomen demonstrates "questionable thickening at the proximal colon in the hepatic flexure region. This could be spurious with lack of distention. Underlying lesion cannot be excluded. This are could be visually inspected at some point". Of note, pt had colonoscopy 10/2016 which did not demonstrate a lesion. (4) FEN/PPX Status: Acute Plan: Fluids: Tolerating by mouth Electrolytes: Monitor and replace when necessary Nutrition: Regular diet Prophylaxis: Heparin, bilateral SCDs Chronic medical problems: Chronic pain: Scheduled IV acetaminophen every 6 hours, Continue home oxycodone 10 mg by mouth every 6 hours when necessary pain 6-10. Dilaudid when necessary breakthrough pain. Muscle spasm: Continue tizanidine (José Ramsey MD R2) José Ramsey MD R2 April 12, 2017 09:13 Shamika Nguyen MD April 12, 2017 15:54
[2017-04-12] MEDS: predniSONE 20 MG TAB PO SCH (11:16)
[2017-04-12 12:00] VITALS: BP 166/111; PULSE 95; RESP 20; TEMP 96; O2SAT 97
[2017-04-12 12:08] LABS: BACTERIA, URINE FEW /hpf; BLOOD, URINE NEG (NEG); COMMENT (UR) CULT NOT INDICATED; CULTURE IF INDICATED CULT NOT INDICATED; GLUCOSE,URINE NEG (NEG); KETONE, URINE NEG (NEG); NITRITE,URINE NEG (NEG); PH, URINE 5.5 (5.0-8.5); SQUAMOUS EPITHELIAL CELL URINE 13 /hpf (0-5); URINE COLOR YELLOW (YELLW/STRAW)
[2017-04-12 14:54] LABS: AUTOMATED NEUTROPHIL # 5.3 TH/MM3 (1.8-7.7); BASOPHIL % 0.7 % (0.0-2.0); EOSINOPHIL # 0.1 TH/MM3 (0-0.4); EOSINOPHIL % 1.1 % (0.0-4.0); HEMO FLAGS DIFF FINAL; LYMPH % 20.1 % (9.0-44.0); LYMPHOCYTE # 1.4 TH/MM3 (1.0-4.8); MEAN CELL VOLUME 81.3 FL (80.0-100.0); MEAN CORPUSCULAR HEMOGLOBIN 26.4 PG (27.0-34.0); MEAN CORPUSCULAR HGB CONC 32.5 % (32.0-36.0); MONO % 4.4 % (0.0-8.0); NEUT % 73.7 % (16.0-70.0); PLATELET COUNT 269 TH/MM3 (150-450); RED BLOOD COUNT 4.79 MIL/MM3 (4.00-5.30); RED CELL DISTRIBUTION WIDTH 15.9 % (11.6-17.2); WHITE BLOOD COUNT 7.2 TH/MM3 (4.0-11.0)
[2017-04-12 16:00] VITALS: BP 168/89; PULSE 92; RESP 17; TEMP 97; O2SAT 93
[2017-04-12 20:00] VITALS: BP 137/89; PULSE 96; RESP 20; TEMP 98; O2SAT 93
[2017-04-12] MEDS: FAMOTIDINE 20 MG TAB PO SCH (20:27)
[2017-04-13] MEDS: HYDROmorphone HCL PF 1 MG/ML VIAL IV PRN ×6 (00:57→22:10)
[2017-04-13] MEDS: TEMAZEPAM 15 MG CAP PO PRN (01:59)
[2017-04-13 05:34] LABS: AUTOMATED NEUTROPHIL # 4.6 TH/MM3 (1.8-7.7); BASOPHIL # 0.1 TH/MM3 (0-0.2); BASOPHIL % 0.7 % (0.0-2.0); EOSINOPHIL # 0.1 TH/MM3 (0-0.4); EOSINOPHIL % 0.6 % (0.0-4.0); HEMATOCRIT 35.6 % (35.0-46.0); HEMO FLAGS DIFF FINAL; LYMPHOCYTE # 3.1 TH/MM3 (1.0-4.8); MEAN CELL VOLUME 81.8 FL (80.0-100.0); MEAN CORPUSCULAR HEMOGLOBIN 26.4 PG (27.0-34.0); MEAN CORPUSCULAR HGB CONC 32.3 % (32.0-36.0); MONO % 12.8 % (0.0-8.0); NEUT % 50.9 % (16.0-70.0); PLATELET COUNT 270 TH/MM3 (150-450); RED BLOOD COUNT 4.35 MIL/MM3 (4.00-5.30); RED CELL DISTRIBUTION WIDTH 15.3 % (11.6-17.2)
[2017-04-13 05:57] LABS: BICARBONATE 24.9 MEQ/L (21.0-32.0); POTASSIUM 3.9 MEQ/L (3.5-5.1)
[2017-04-13] MEDS: HEPARIN SODIUM - SQ 10,000 UNITS/ML VIAL SQ SCH ×2 (06:22→17:37)
[2017-04-13 08:00] VITALS: BP 168/97; PULSE 84; RESP 19; TEMP 95.6; O2SAT 95
[2017-04-13] MEDS: predniSONE 20 MG TAB PO SCH (08:02)
[2017-04-13] MEDS: VANCOMYCIN INJ 1,600 MG in SODIUM CHLORID 0.9% 500 ML INJ 500 ML IV SCH ×2 (08:02→22:05)
[2017-04-13] MEDS: CALCIUM/VITAMIN D 250 MG/125 U TAB PO SCH (08:02)
[2017-04-13] MEDS: SODIUM CHLORIDE 0.9% FLUSH 10 ML FLUSH IV FLUSH SCH ×2 (08:04→20:54)
--- NOTE | 2017-04-13 09:11 | HHI.FPPN ---
Subjective Remarks Patient is doing okay this morning. She states the combination of prednisone, Tylenol, Roxicodone yesterday helped her a great deal. However, the Tylenol have stopped time and she has not received it. She would like IV Tylenol resumed. She does not think the swelling in her left labia has decreased. 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 Denies fever, chills, nausea, vomiting. (José Ramsey MD R2) Objective Vitals Vital Signs Date Time Temp Pulse Resp B/P Pulse Ox O2 Delivery O2 Flow Rate FiO2 04/13/17 08:00 95.6 84 19 168/97 95 04/13/17 01:27 18 04/13/17 00:52 18 04/12/17 20:00 98.0 96 20 137/89 93 04/12/17 16:00 97.0 92 17 168/89 93 04/12/17 12:00 96.0 95 20 166/111 97 I/O 04/12/17 04/12/17 04/12/17 04/13/17 04/13/17 04/13/17 07:00 15:00 23:00 07:00 15:00 23:00 Intake Total 360 ml 500 ml 960 ml 480 ml Output Total 500 ml Balance -140 ml 500 ml 960 ml 480 ml Intake Oral 360 ml 500 ml 960 ml 480 ml Output Urine Total 500 ml # Voids 6 3 4 # Bowel Movements 0 2 (José Ramsey MD R2) Result Diagram: 04/13/17 0438 04/13/17 0438 Objective Remarks GENERAL: in NAD, no resp distress, nontoxic. Awake and alert. NECK: Supple, no meningeal signs. CV: RRR, S1 S2. No murmurs CHEST/PULM: CTAB, no crackles, no wheezes ABD/GI: +BS, soft, nontender, nondistended EXT: 2+ DP pulses. No edema. No calf tenderness NEURO: Awake, alert. Normal muscle tone. Grossly nonfocal. SKIN: Right axilla with area of erythema consistent with recent prior abscess/ cellulitis; no increased calor, nontender. Right lateral chest with scab, 1cm in diameter; without surrounding erythema, nontender. PSYCH: Mood and affect are appropriate. Speech fluent. Does not appear to respond to internal stimuli. (performed with nurse maintenance inspector in room.): Left labia with redness, swelling , and tenderness. There is an area of induration measuring 2cm wide x 4cm long. There is no induration in the vagina. This does not cross midline. Anus with scars but no erythema, swelling, or tenderness. (José Ramsey MD R2) A/P Assessment and Plan 46 yo lady admitted for labial cellulitis, which has failed outpatient treatment. Discharge Planning Pending improvement with infection; possibly today or tomorrow. (José Ramsey MD R2) Attending Attestation Patient seen, and examined, discussed with resident team. I agree with assessment and management as documented and discussed with me. Pt reports that labial swelling is unchanged. GI has seen patient - recs made for outpatient changes to biologic meds for crohns. Await IR eval to determine if inflammatory phlegmon can be drained from left labia. (Shamika Nguyen MD) Problem List: (1) Cellulitis of labia Status: Acute Plan: Failed outpatient antibotics. Continue vancomycin 1600 mg every 8 hours 04/09/17 --> WBC count normal Blood Culture 04/09: No growth to date Ultrasound left labia ordered to evaluate for possible abscess. (2) Sepsis Status: Resolved Plan: On admission, the patient did meet sepsis criteria with leukocytosis, tachycardia, and cellulitis as the source. See plan above for management. (3) Crohn's disease Status: Chronic Plan: Follows as an outpatient with Dr. Murray. No intervention needed. CT abdomen demonstrates "questionable thickening at the proximal colon in the hepatic flexure region. This could be spurious with lack of distention. Underlying lesion cannot be excluded. This are could be visually inspected at some point". Of note, pt had colonoscopy 10/2016 which did not demonstrate a lesion. (4) FEN/PPX Status: Acute Plan: Fluids: Tolerating by mouth Electrolytes: Monitor and replace when necessary Nutrition: Regular diet Prophylaxis: Heparin, bilateral SCDs Chronic medical problems: Chronic pain: Scheduled IV acetaminophen every 6 hours, Continue home oxycodone 10 mg by mouth every 6 hours when necessary pain 6-10. Dilaudid when necessary breakthrough pain. Muscle spasm: Continue tizanidine (José Ramsey MD R2) José Ramsey MD R2 April 13, 2017 09:10 Shamika Nguyen MD April 13, 2017 20:09
--- NOTE | 2017-04-13 10:44 | RADRPT ---
EXAM DATE/TIME: 04/13/2017 09:57 [facility] COMPARISON: No previous studies available for comparison. INDICATIONS : Left labial abscess. MEDICAL HISTORY : Migraines. Hypertension. Crohn's disease. ulcer. ibs. gerd. diarrhea. nausea. fibromyalgia. depressio n. SURGICAL HISTORY : Tonsillectomy. Appendectomy. Cholecystectomy. Adenoidectomy. Bowel resection. Perianal abscess I&D. F issure anal. Finger abscess I&D. ENCOUNTER: Initial ACUITY: 1 day PAIN SCORE: 7/10 LOCATION: Left labia majora. AREA EVALUATED: Left labia majora. FINDINGS: Targeted sonogram along the left labia majora demonstrates hypoechoic elongated area measuring 4.9 x 1.4 x 2.5 cm. There is skin thickening. CONCLUSION: Complex hypoechoic area along the left labia majora could be extensive phlegmon versus abscess. If th is is an abscess the fluid appears very viscous. Krzysztof Clifford MD on April 13, 2017 at 10:39 Board Certified Radiologist. This report was verified electronically.
[2017-04-13] MEDS: SODIUM CHLORIDE 0.9% FLUSH 10 ML FLUSH IV FLUSH PRN ×2 (11:10→16:05)
[2017-04-13] MEDS: ACETAMINOPHEN 1000 MG/100 ML VIAL IV SCH ×3 (11:13→20:54)
[2017-04-13 12:00] VITALS: BP 157/89; PULSE 77; RESP 19; TEMP 96.8; O2SAT 94
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
[2017-04-13 16:00] VITALS: BP 150/87; PULSE 75; RESP 19; TEMP 95.6; O2SAT 94
--- NOTE | 2017-04-13 17:02 | RADRPT ---
EXAM DATE/TIME: 04/13/2017 00:00 COMPARISON: ULTRASOUND SOFT TISSUE, April 13, 2017, 9:57. INDICATIONS : Labial abscess FINDINGS: Ultrasound showed phlegmon reaction in the left labia majora. This could represent a superficial absc ess however this appears very viscous in nature. CONCLUSION: The best option would be an incision and drainage. Image guiding catheter placement is placement is n ot an option. Krzysztof Clifford MD on April 13, 2017 at 16:56 Board Certified Radiologist. This report was verified electronically.
[2017-04-13 20:00] VITALS: BP 151/99; PULSE 91; RESP 18; TEMP 97.5; O2SAT 94
[2017-04-13] MEDS: FAMOTIDINE 20 MG TAB PO SCH (20:52)
[2017-04-13 22:51] LABS: C. DIFF EPI 027 PRESUMPTIVE NEGATIVE (NEGATIVE); C. DIFF TOXIN PCR NEGATIVE (NEGATIVE)
[2017-04-14] VITALS: BP 161/109; PULSE 84; RESP 16; TEMP 98.5; O2SAT 95
[2017-04-14] MEDS: HYDROmorphone HCL PF 1 MG/ML VIAL IV PRN ×5 (00:25→13:23)
[2017-04-14] MEDS ORDERED: hydrALAZINE HCL 20 MG/ML VIAL IV PRN (01:00)
[2017-04-14] MEDS: ACETAMINOPHEN 1000 MG/100 ML VIAL IV SCH ×3 (03:05→16:00)
[2017-04-14] MEDS: TEMAZEPAM 15 MG CAP PO PRN (03:10)
[2017-04-14 04:00] VITALS: BP 142/80; PULSE 71; RESP 16; TEMP 97; O2SAT 93
[2017-04-14] MEDS: HEPARIN SODIUM - SQ 10,000 UNITS/ML VIAL SQ SCH (05:47)
[2017-04-14 08:00] VITALS: BP 167/96; PULSE 76; RESP 18; TEMP 96.7; O2SAT 95
[2017-04-14] MEDS: CALCIUM/VITAMIN D 250 MG/125 U TAB PO SCH (09:33)
[2017-04-14] MEDS: predniSONE 20 MG TAB PO SCH (09:33)
[2017-04-14] MEDS: VANCOMYCIN INJ 1,600 MG in SODIUM CHLORID 0.9% 500 ML INJ 500 ML IV SCH (09:34)
[2017-04-14] MEDS: SODIUM CHLORIDE 0.9% FLUSH 10 ML FLUSH IV FLUSH SCH (09:35)
[2017-04-14 12:00] VITALS: BP 145/80; PULSE 80; RESP 18; TEMP 97; O2SAT 95
--- NOTE | 2017-04-14 12:27 | HHI.FPPN ---
Subjective Remarks Patient doing okay this morning. Denies fevers or chills. She continues to have pelvic pain and labial pain. No nausea, vomiting, diarrhea. (José Ramsey MD R2) Objective Vitals Vital Signs Date Time Temp Pulse Resp B/P Pulse Ox O2 Delivery O2 Flow Rate FiO2 04/14/17 12:00 97.0 80 18 145/80 95 04/14/17 08:00 96.7 76 18 167/96 95 04/14/17 04:00 97.0 71 16 142/80 93 04/14/17 00:00 98.5 84 16 161/109 95 04/13/17 20:00 97.5 91 18 151/99 94 04/13/17 16:33 16 04/13/17 16:33 16 04/13/17 16:00 95.6 75 19 150/87 94 04/13/17 14:15 16 I/O 04/13/17 04/13/17 04/13/17 04/14/17 04/14/17 04/14/17 07:00 15:00 23:00 07:00 15:00 23:00 Intake Total 480 ml 625 ml 350 ml 850 ml Balance 480 ml 625 ml 350 ml 850 ml Intake Oral 480 ml 240 ml 240 ml IV Total 625 ml 110 ml 610 ml # Voids 4 1 2 # Bowel Movements 0 0 (José Ramsey MD R2) Result Diagram: 04/13/17 0438 04/13/17 0438 Imaging Last Impressions Soft Tissue Ultrasound 04/13/17 0000 Signed Impressions: Service Date/Time: Thursday, April 13, 2017 09:57 - CONCLUSION: Complex hypoechoic area along the left labia majora could be extensive phlegmon versus abscess. If this is an abscess the fluid appears very viscous. Krzysztof Clifford MD Consultation 04/13/17 0000 Signed Impressions: Service Date/Time: Thursday, April 13, 2017 00:00 - CONCLUSION: The best option would be an incision and drainage. Image guiding catheter placement is placement is not an option. Krzysztof Clifford MD Abdomen/Pelvis CT 04/09/17 1153 Signed Impressions: Service Date/Time: Sunday, April 09, 2017 15:14 - CONCLUSION: 1. Fatty infiltration of the liver. 2. Status post cholecystectomy. 3. Status post resection at the proximal ascending colon. There is some questionable thickening at the proximal colon in the hepatic flexure region. This could be spurious with simple lack of distention. An underlying lesion cannot be excluded. This area could be directly inspected at some point. Froylan Clayton MD Objective Remarks GENERAL: in NAD, no resp distress, nontoxic. Awake and alert. NECK: Supple, no meningeal signs. CV: RRR, S1 S2. No murmurs CHEST/PULM: CTAB, no crackles, no wheezes ABD/GI: +BS, soft, nontender, nondistended EXT: 2+ DP pulses. No edema. No calf tenderness NEURO: Awake, alert. Normal muscle tone. Grossly nonfocal. SKIN: Right axilla with area of erythema consistent with recent prior abscess/ cellulitis; no increased calor, nontender. Right lateral chest with scab, 1cm in diameter; without surrounding erythema, nontender. PSYCH: Mood and affect are appropriate. Speech fluent. Does not appear to respond to internal stimuli. (performed with nurse risk assessment analyst in room.): Left labia with redness, swelling , and tenderness. There is an area of induration measuring 2cm wide x 4cm long. There is no induration in the vagina. This does not cross midline. Anus with scars but no erythema, swelling, or tenderness. (José Ramsey MD R2) A/P Assessment and Plan 46 yo female with Crohn's disease admitted for labial cellulitis/abscess, which has failed outpatient treatment. GI consult MEDICAL ARTIST consult Discharge Planning Pending improvement with infection; possibly today or tomorrow. (José Ramsey MD R2) Attending Attestation Patient seen, examined, and discussed with resident team. I agree with assessment and management as documented and discussed with me. Pt reports left labial swelling the same. Suspect inflammatory phlegmon - await MEDICAL ARTIST consult to determine if candidate for I&D. (Shamika Nguyen MD) Problem List: (1) Cellulitis of labia Status: Acute Plan: Failed outpatient antibotics. Continue vancomycin 1600 mg every 8 hours 04/09/17 --> WBC count normal Blood Culture 04/09: No growth to date Ultrasound left labia: Complex hypoechoic area along the left labia majora could be consistent with phlegmon versus abscess. MEDICAL ARTIST consult, case discussed with Dr. Handley. (2) Sepsis Status: Resolved Plan: On admission, the patient did meet sepsis criteria with leukocytosis, tachycardia, and cellulitis as the source. See plan above for management. (3) Crohn's disease Status: Chronic Plan: Follows as an outpatient with Dr. Murray. No intervention needed. CT abdomen demonstrates "questionable thickening at the proximal colon in the hepatic flexure region. This could be spurious with lack of distention. Underlying lesion cannot be excluded. This are could be visually inspected at some point". Of note, pt had colonoscopy 10/2016 which did not demonstrate a lesion. GI consult (4) FEN/PPX Status: Acute Plan: Fluids: Tolerating by mouth Electrolytes: Monitor and replace when necessary Nutrition: Regular diet Prophylaxis: Heparin, bilateral SCDs Chronic medical problems: Chronic pain: Scheduled IV acetaminophen every 6 hours, Continue home oxycodone 10 mg by mouth every 6 hours when necessary pain 6-10. Dilaudid when necessary breakthrough pain. Muscle spasm: Continue tizanidine (José Ramsey MD R2) José Ramsey MD R2 April 14, 2017 12:27 Shamkia Nguyen MD April 15, 2017 10:39
--- NOTE | 2017-04-14 12:47 | HHI.GIFU ---
Subjective Remarks Comfortable in bed denies any pain denies any drainage Objective Vitals I&O Vital Signs Date Time Temp Pulse Resp B/P Pulse Ox O2 Delivery O2 Flow Rate FiO2 04/14/17 12:00 97.0 80 18 145/80 95 04/14/17 08:00 96.7 76 18 167/96 95 04/14/17 04:00 97.0 71 16 142/80 93 04/14/17 00:00 98.5 84 16 161/109 95 04/13/17 20:00 97.5 91 18 151/99 94 04/13/17 16:33 16 04/13/17 16:33 16 04/13/17 16:00 95.6 75 19 150/87 94 04/13/17 14:15 16 I/O 04/13/17 04/13/17 04/13/17 04/14/17 04/14/17 04/14/17 07:00 15:00 23:00 07:00 15:00 23:00 Intake Total 480 ml 625 ml 350 ml 850 ml Balance 480 ml 625 ml 350 ml 850 ml Intake Oral 480 ml 240 ml 240 ml IV Total 625 ml 110 ml 610 ml # Voids 4 1 2 # Bowel Movements 0 0 Laboratory Laboratory Tests Test 04/13/17 21:00 Stool C. difficile Toxin (PCR) NEGATIVE Stl C. difficile Toxin PRESUMPTIVE Epiderm 027 NEGATIVE Date/Time Procedure Status Source Growth 04/13/17 21:00 Cryptosporidium Exam - Final Resulted Stool Stool NEGATIVE - NO CRYPTOSPORIDIUM ANTIGEN... 04/13/17 21:00 Stool Pus (ТАТЬЯНА) Resulted Stool Stool Pending 04/13/17 21:00 Giardia Antigen (ТАТЬЯНА) - Final Resulted Stool Stool NEGATIVE - NO GIARDIA ANTIGEN DETECTE... Imaging Last 48 hours Impressions Soft Tissue Ultrasound 04/13/17 0000 Signed Impressions: Service Date/Time: Thursday, April 13, 2017 09:57 - CONCLUSION: Complex hypoechoic area along the left labia majora could be extensive phlegmon versus abscess. If this is an abscess the fluid appears very viscous. Krzysztof Clifford MD Consultation 04/13/17 0000 Signed Impressions: Service Date/Time: Thursday, April 13, 2017 00:00 - CONCLUSION: The best option would be an incision and drainage. Image guiding catheter placement is placement is not an option. Krzysztof Clifford MD Physical Exam HEENT: Normocephalic atraumatic throat is clear no jaundice NECK: Neck is supple, CHEST: Chest is clear to auscultation and percussion. CARDIAC: Regular rate and rhythm with no murmur gallop or rubs. ABDOMEN: Soft, nondistended, nontender; no hepatosplenomegaly; bowel sounds are present in all four quadrants. EXTREMITIES: No clubbing, cyanosis, or edema. SKIN: Normal; no rash; no jaundice. ENERGY EFFICIENCY SPECIALIST: No focal deficits; alert and oriented times three. Assessment and Plan Plan - labial cellulitis/abscess Possible crohns related, this is on going since , failed medical management US of soft tissue Complex hypoechoic area along the left labia majora could be extensive phlegmon versus abscess. Currently, patient was started on Vanco and prednisone. - Crohn's disease, chronic- Patient had a fairly complicated Crohn, and has failed multiple medical management including Remicade, Humira, Cimizia. Currently, she is on Apriso. She has been very weak, lethargic, no energy, with sweats and chills. She has been having loose watery stools about 12 times a day. She has had multiple CT scans within the last few months. She also had CTE last year that was unremarkable. She reports lower abd pain with radiation to the hips area, nausea and loss of appetite. Denies vomiting, hematemesis, melena or hematochezia. Patient has a tendency to develop abscesses and wounds in different areas. CT on 04/09/17 Fatty infiltration of the liver. 2. Status post cholecystectomy. 3. Status post resection at the proximal ascending colon. There is some questionable thickening at the proximal colon in the hepatic flexure region. This could be spurious with simple lack of distention. An underlying lesion cannot be excluded. Patient had EGD/colonoscopy on (11/11/2016) ----> Normal esophagus, stomach, and duodenum. evidence of prior ileocolonic surgical anastomosis in the proximal ascending coon, and internal hemorrhoids. - Multiple local skin infections and subcutaneous tissue- in the past - Elevated WBCs, Improved, blood cx negative so far, on vanco Plan: - CHANTE - Consult IR for possible drainage of the abscess - Cont. Prednisone - Cont. Vanco - Stools studies - Will need colonoscopy but can be done as an OP - Patient will benefit of Stelara or entyvio, will try to submit for this as an OP, she has an appt on April, - Supportive care Rich Boss MD April 14, 2017 12:47
--- NOTE | 2017-04-14 13:43 | PD.CONS ---
HPI Chief Complaint Labial infection Date Seen: April 14, 2017 Travel History International Travel<30 Days: No Contact w/Intl Traveler<30Days: No Known Affected Area: No History of Present Illness HPI This patient is a 46-year-old white female para 2 who has of 3 week history of a labial infection on the left, she states that would swell up about the size of 1/2 lemon and it was tender and spontaneously drain some infection material, she went to the [place] emergency room He could not drainage and put on Bactrim , she states that the infected area decreased in size and then after a small amount of time increases to full lemon size and then it spontaneously drained again more infected material and she went back to the emergency room but this time was. [place] and was admitted for recurrent problem that was not getting better as an outpatient, she's been on IV vancomycin now for several days and has improved she states that it seems to be getting more tender but that is shrunk in size, she doesn't know if she has a fever not she says she has night sweats and chills even up to recently. The patient has a history of Crohn's disease and has had multiple anal abscesses with the fistula tract to the outside treated in the past. Para: 2 : 2 History Past Medical History Narrative Medical Crohn's disease Obstetric History Obstetric History 2 vaginal deliveries Past Surgical History Narrative Surgical She's had multiple bowel surgeries and the repairs of these anal fissures. Social History Alcohol Use: No Tobacco Use: Yes Substance Abuse: No Allergies-Medications (Allergen,Severity, Reaction): Coded Allergies: Skelaxin (Verified Allergy, Severe, Rash, 03/25/17) RASH- MILD REACTION Toradol (Verified Allergy, Severe, Itching, 03/25/17) HIVES- INTERMEDIATE REACTION Tramadol (Verified Allergy, Severe, ITCHING, 03/25/17) HIVES- INTERMEDIATE REACTION Robaxin (Verified Allergy, Intermediate, Rash, 03/25/17) MILD REACTION Cymbalta (Verified Allergy, Mild, dizziness, 03/25/17) Home Meds Active Scripts Promethazine (Phenergan)25 Mg Tab25 Mg PO Q6H PRN (Nausea/Vomiting) #30 TAB Ref 0 Prov:Teja Paulino MD 5/5/17 Reported Medications Tizanidine (Zanaflex)4 Mg Cap4 Mg PO HS Ref 0 04/09/17 Oxycodone 10 Mg Tab10 Mg PO Q6-8HR PRN (PAIN) Ref 0 03/08/17 Ranitidine (Zantac)150 Mg [id number] Mg PO HS #60 TAB Ref 0 11/08/16 Loperamide (Imodium A-D)2 Mg Cap2 Mg PO DIRECTED PRN (DIARRHEA) Ref 0 One capsule after each loose stool. Not to exceed 8 tablets per day. 11/08/16 Saccharomyces Boulardii (Florastor)250 Mg [id number] Mg PO BID Ref 0 11/08/16 [place]-3 Fatty Acids (Fish Oil 1000 mg)1 Cap Cap1,000 Mg PO DAILY 11/08/16 Cyanocobalamin Inj 1,000 Mcg/Ml Inj1,000 Mcg SQ MONTHLY #1 VIAL Ref 0 11/08/16 Calcium Carbonate-Vitamin D (Calcium 500 + D)500-125 Mg-Unit Tab1 Tab PO DAILY 11/08/16 Mesalamine ER 24 HR (Apriso)0.375 Gm Caper1.5 Gm PO DAILY Ref 0 11/08/16 Discontinued Reported Medications Cyclobenzaprine (Flexeril)5 Mg Tab5 Mg PO HS #90 TAB Ref 0 03/08/17 Promethazine (Phenergan)25 Mg Tab25 Mg PO Q6H PRN (NAUSEA OR VOMITING) Ref 0 11/08/16 Lisinopril 10 Mg Tab10 Mg PO DAILY #30 TAB Ref 0 11/08/16 Discontinued Scripts Promethazine Supp (Phenergan Supp)50 Mg Supp50 Mg RECTAL Q6H PRN (NAUSEA OR VOMITING) #10 SUPP Ref 0 Prov:Teja Paulino MD 03/25/17 Methylprednisolone Dosepak (Medrol Dosepak)4 Mg Dspk4 Mg PO DIRECTED #1 DSPK Ref 0 Per Pharmacist direction Prov:Suresh Burrows MD 03/08/17 Review of Systems General / Constitutional: No: Fever, Weight Gain, Chills, Other Eyes: No: Diploplia, Blurred Vision, Visual changes, Pain, Photophobia HENT: No: Headaches, Vertigo, Lightheadedness Cardiovascular: No: Irregular Rhythm, Chest Pain or Discomfort, Palpitations, Tachycardia, Syncope, Varicosities, Edema, Cyanosis Respiratory: No: Cough, Short of Breath, Other Gastrointestinal: No: Nausea, Vomiting, Diarrhea Genitourinary: No: Decreased Urinary Output, Oliguria Musculoskeletal: No: Limited ROM, Weakness, Cramping, Edema, Pain Skin: No Rash, No Itching, No Dryness, No Lumps, No Change in Pigmentation, No Change in Nails, No Alopecia, No Lesions Neurologic: No: Weakness, Dizziness, Syncope, Focal Abnormalities, Coordination Problem, Headache, Slurred Speech, Seizures Psychiatric: No: Depression, Suicidal Ideations, Homicidal Ideation Endocrine: No: Heat Intolerance, Cold Intolerance, Polydipsia, Polyuria, Other Physical Exam Vital Signs Date Time Temp Pulse Resp B/P Pulse Ox O2 Delivery O2 Flow Rate FiO2 04/14/17 12:00 97.0 80 18 145/80 95 04/14/17 08:00 96.7 76 18 167/96 95 04/14/17 04:00 97.0 71 16 142/80 93 04/14/17 00:00 98.5 84 16 161/109 95 04/13/17 20:00 97.5 91 18 151/99 94 04/13/17 16:33 16 04/13/17 16:33 16 04/13/17 16:00 95.6 75 19 150/87 94 04/13/17 14:15 16 Narrative GENERAL: Well-nourished, well-developed patient. SKIN: Warm and dry. HEAD: Normocephalic and atraumatic. EYES: No scleral icterus. No injection or drainage. ENT: No nasal drainage noted. Mucous membranes pink. Airway patent. NECK: Supple, trachea midline. No JVD. CARDIOVASCULAR: Regular rate and rhythm without murmurs, gallops, or rubs. RESPIRATORY: Breath sounds equal bilaterally. No accessory muscle use. BREASTS: Bilateral exam showed no masses , no retractions, no nipple discharge. ABDOMEN/GI: Abdomen soft, non-tender, bowel sounds present, no rebound, no guarding GENITOURINARY: External Genitalia --the left labia is somewhat swollen compared to the right is no real redness or palpable mass in the labia, there is no fluctuance nothing feels like it's a drainable cavity in left labia, it is tender to palpation 1-2+ not severe tenderness The vagina palpates and appears normal EXTREMITIES: No cyanosis or edema. BACK: Nontender without obvious deformity. No CVA tenderness. NEUROLOGICAL: Awake and alert. Motor and sensory grossly within normal limits. Five out of 5 muscle strength in all muscle groups. Normal speech. Data Data Orders C Diff Toxin Pcr (04/13/17 13:43) Stool Ova And Parasite Screen (04/13/17 13:43) Giardia Antigen (Stool) (04/13/17 13:43) Stool Wbc (Leukocytes) (04/13/17 13:43) Specimen To Be Collected PRN (04/13/17 13:43) Ct Dept Consultation (04/13/17 ) Vascular Access Team Consult/P PRN (04/13/17 19:21) Vascular Poc Ultrasound (04/13/17 ) Consult Gynecology (04/13/17 ) (Hub Use Only)Inp Phy Cons/Ref (04/13/17 ) Hydralazine Inj (Apresoline Inj) (04/14/17 01:00) Basic Metabolic Panel (Bmp) (04/15/17 06:00) Complete Blood Count With Diff (04/15/17 06:00) Labs Laboratory Tests Test 04/13/17 21:00 Stool C. difficile Toxin (PCR) NEGATIVE Stl C. difficile Toxin PRESUMPTIVE Epiderm 027 NEGATIVE Date/Time Procedure Status Source Growth 04/13/17 21:00 Cryptosporidium Exam - Final Resulted Stool Stool NEGATIVE - NO CRYPTOSPORIDIUM ANTIGEN... 04/13/17 21:00 Stool Pus (ТАТЬЯНА) Resulted Stool Stool Pending 04/13/17 21:00 Giardia Antigen (ТАТЬЯНА) - Final Resulted Stool Stool NEGATIVE - NO GIARDIA ANTIGEN DETECTE... MDM Interpretation(s) Left labial cellulitis with the at times abscess formation, this area presents to swell up collect fluid and a drain on its own and has done this 3 times in the last 3-4 weeks, at this time I do not palpate an area that is able to address surgically, if one tried to cut into this they would only get bleeding no significant drainage of any purulence there seems to be a good response to IV antibiotics of vancomycin the ideal antibiotic this stage because 80% of vulvar abscesses and cellulitis is related to MRSA Plan I would recommend this patient to be continued on her antibiotic therapy she's not be discharged today to and recommended oral MRSA covering drug for the next 2-3 weeks to be vancomycin and Cipro or whichever is preferred by the discharging physician, now recommend that she be seen in approximately 2 weeks previous exam in the vulvar area to make sure it is not worsening are becoming more problem. If this area does swell up like she describes the size of a lemon or golf ball size that is very tender I would think at that time if it could be presented and seen at that stage then surgery would be a good idea to I&D this and possibly even marsupialize Admitting diagnosis: labial cellulitis, abdominal pain Diagnosis: left labial cellulitis Joe Juan II, MD April 14, 2017 13:43
--- NOTE | 2017-04-14 13:48 | HHI.DCPOC ---
Discharge Care Plan Diagnosis: (1) Crohns disease (2) Cellulitis Goals to Promote Your Health * To prevent worsening of your condition and complications * To maintain your health at the optimal level Directions to Meet Your Goals Take your medications as prescribed Follow your dietary instruction Follow activity as directed Keep your appointments as scheduled Take your immunizations and boosters as scheduled If your symptoms worsen call your PCP, if no PCP go to Urgent Care Center or Emergency Room Smoking is Dangerous to Your Health. Avoid second hand smoke Call the 24-hour hour crisis hotline for domestic abuse at José Ramsey MD R2 April 14, 2017 13:48
[2017-04-14] MEDS ORDERED: DILA2TAB2 PO (13:51)
[2017-04-14] MEDS ORDERED: CLIN1CAP6 PO (15:30)
--- NOTE | 2017-04-15 07:41 | HHI.DS ---
Discharge Summary Admission Date April 09, 2017 at 16:43 Discharge Date: April 14, 2017 Admitting Diagnosis labial cellulitis, abdominal pain (1) Cellulitis of labia Diagnosis: Principal Plan: Failed outpatient antibotics. Continue vancomycin 1600 mg every 8 hours 04/09/17 --> WBC count normal Blood Culture 04/09: No growth to date Ultrasound left labia: Complex hypoechoic area along the left labia majora could be consistent with phlegmon versus abscess. SNOWMAKER consult, case discussed with Dr. Handley. (2) Sepsis Diagnosis: Principal Plan: On admission, the patient did meet sepsis criteria with leukocytosis, tachycardia, and cellulitis as the source. See plan above for management. (3) Crohn's disease Diagnosis: Secondary Plan: Follows as an outpatient with Dr. Murray. No intervention needed. CT abdomen demonstrates "questionable thickening at the proximal colon in the hepatic flexure region. This could be spurious with lack of distention. Underlying lesion cannot be excluded. This are could be visually inspected at some point". Of note, pt had colonoscopy 10/2016 which did not demonstrate a lesion. GI consult (4) FEN/PPX Diagnosis: Secondary Plan: Fluids: Tolerating by mouth Electrolytes: Monitor and replace when necessary Nutrition: Regular diet Prophylaxis: Heparin, bilateral SCDs Chronic medical problems: Chronic pain: Scheduled IV acetaminophen every 6 hours, Continue home oxycodone 10 mg by mouth every 6 hours when necessary pain 6-10. Dilaudid when necessary breakthrough pain. Muscle spasm: Continue tizanidine [facility] Gastroenterology Interventional radiology Gynecology Brief History 46-year-old female with history of Crohn's disease presents for the third time this month to seek treatment for abscess and cellulitis of the left labia. She states intermittently over the last month she has had swelling in the left labia with times it has drained. She stated the swelling and discomfort in the left labia began about 1 month ago. She was seen at the [place] emergency room and sent home with Bactrim for 7 days. She completed the course of antibiotics and the area swelled up and drained. 2 weeks later the swelling increased in size again. She was seen again at the [place] emergency room and was discharged on nausea medication and without antibiotics. Since that time she has had more swelling, however 2 days ago the area spontaneously drained and it is much smaller at this time. Over the last month she has had nausea, loss of appetite, fevers on and off. She feels like her strength is going down. And she is having less energy. She has also had 2 areas in her right axilla that have had swelling. But these areas have gone down at this time. She has had 8 out of 10 pain in her abdomen, low back, and pelvic region. This pain comes and goes. She is constantly uncomfortable. She describes the pain as "pressure." Her GI physician is Dr. Murray. She recently had a colonoscopy October 2016 which she states is within normal limits for her. CBC/BMP: 04/13/17 0438 04/13/17 0438 Significant Findings Laboratory Tests Test 04/12/17 04/12/17 04/13/17 11:15 14:08 04:38 Urine Turbidity HAZY (CLEAR) Urine Leukocyte Esterase SMALL (NEG) Urine WBC 7 /hpf (0-5) Urine Bacteria FEW /hpf (NONE) Mean Corpuscular Hemoglobin 26.4 PG 26.4 PG (27.0-34.0) (27.0-34.0) Neutrophils (%) (Auto) 73.7 % (16.0-70.0) Hemoglobin 11.5 GM/DL (11.6-15.3) Monocytes (%) (Auto) 12.8 % (0.0-8.0) Monocytes # (Auto) 1.1 TH/MM3 (0-0.9) Blood Urea Nitrogen 5 MG/DL (7-18) Imaging Last Impressions Soft Tissue Ultrasound 04/13/17 0000 Signed Impressions: Service Date/Time: Thursday, April 13, 2017 09:57 - CONCLUSION: Complex hypoechoic area along the left labia majora could be extensive phlegmon versus abscess. If this is an abscess the fluid appears very viscous. Krzysztof Clifford MD Consultation 04/13/17 0000 Signed Impressions: Service Date/Time: Thursday, April 13, 2017 00:00 - CONCLUSION: The best option would be an incision and drainage. Image guiding catheter placement is placement is not an option. Krzysztof Clifford MD Abdomen/Pelvis CT 04/09/17 1153 Signed Impressions: Service Date/Time: Sunday, April 09, 2017 15:14 - CONCLUSION: 1. Fatty infiltration of the liver. 2. Status post cholecystectomy. 3. Status post resection at the proximal ascending colon. There is some questionable thickening at the proximal colon in the hepatic flexure region. This could be spurious with simple lack of distention. An underlying lesion cannot be excluded. This area could be directly inspected at some point. Froylan Clayton MD PE at Discharge GENERAL: in NAD, no resp distress, nontoxic. Awake and alert. NECK: Supple, no meningeal signs. CV: RRR, S1 S2. No murmurs CHEST/PULM: CTAB, no crackles, no wheezes ABD/GI: +BS, soft, nontender, nondistended EXT: 2+ DP pulses. No edema. No calf tenderness NEURO: Awake, alert. Normal muscle tone. Grossly nonfocal. SKIN: Right axilla with area of erythema consistent with recent prior abscess/ cellulitis; no increased calor, nontender. Right lateral chest with scab, 1cm in diameter; without surrounding erythema, nontender. PSYCH: Mood and affect are appropriate. Speech fluent. Does not appear to respond to internal stimuli. (performed with nurse machine etcher in room.): Left labia with redness, swelling , and tenderness. There is an area of induration measuring 2cm wide x 4cm long. There is no induration in the vagina. This does not cross midline. Anus with scars but no erythema, swelling, or tenderness. Hospital Course On admission patient was found to have likely cellulitis with no drainable abscess. She was started on vancomycin on day #1. Her labial swelling appeared to be decreasing somewhat in size. However, she remained painful in that area and tender to palpation. It was determined the patient may have an abscess that would require drainage. An ultrasound was ordered which showed phlegmon versus abscess. At that time, day #4, gastroenterology was consulted to help with Crohn's disease management. Interventional radiology was consulted to help with drainage of the abscess/phlegmon. Interventional radiology determined there was no intervention they could provide. Gynecology was consulted to see if they could evacuate the phlegmon/abscess. Gynecology determined the patient's best option would be to try a residential course of by mouth antibiotics. Patient was agreeable to this plan. Patient was discharged with pain medication, Dilaudid 2 mg by mouth every 8 hours when necessary pain, and clindamycin total of 14 days worth of antibiotics. Patient has good follow-up with her tree inspector on 04/22/17. She also assured us that she would locate a primary care provider for follow-up. Pt Condition on Discharge: Fair Discharge Disposition: Discharge Home Discharge Instructions DIET: Follow Instructions for: As Tolerated, No Restrictions Activities you can perform: Regular-No Restrictions Follow up Referrals: PCP Follow-up - 1 Week New Medications: Clindamycin (Clindamycin) 300 Mg Cap 300 MG PO Q6H Infection #40 Ref 0 CAP Hydromorphone (Dilaudid) 2 Mg Tab 2 MG PO Q8H PRN Pain Management #21 Ref 0 TAB Continued Medications: Calcium Carbonate-Vitamin D (Calcium 500 + D) 500-125 Mg-Unit Tab 1 TAB PO DAILY TAB Cyanocobalamin Inj (Cyanocobalamin Inj) 1,000 Mcg/Ml Inj 1000 MCG SQ MONTHLY #1 Ref 0 VIAL Loperamide (Imodium A-D) 2 Mg Cap 2 MG PO DIRECTED One capsule after each loose stool. Not to exceed 8 tablets per day. PRN DIARRHEA Ref 0 CAP Mesalamine ER 24 HR (Apriso) 0.375 Gm Caper 1.5 GM PO DAILY Ulcerative colitis Ref 0 CAP [place]-3 Fatty Acids (Fish Oil 1000 mg) 1 Cap Cap 1000 MG PO DAILY Oxycodone (Oxycodone) 10 Mg Tab 10 MG PO Q6-8HR PRN PAIN Ref 0 TAB Promethazine (Phenergan) 25 Mg Tab 25 MG PO Q6H PRN Nausea/Vomiting #30 Ref 0 TAB Ranitidine (Zantac) 150 Mg Tab 150 MG PO HS Reduce Stomach Acid #60 Ref 0 TAB Saccharomyces Boulardii (Florastor) 250 Mg Cap 250 MG PO BID Nutritional Supplement Ref 0 CAP Tizanidine (Zanaflex) 4 Mg Cap 4 MG PO HS Muscle Spasm Ref 0 CAP José Ramsey MD R2 April 15, 2017 07:41
[2017-04-15] MEDS ORDERED: PHARMACY ORDERED LAB ONE (08:45)
== END 2017-04-14 16:40 | disposition home or self-care (01) | DRG 872 ==
LOC: NEPD 11:12 → NEDA 16:43 → N07A 18:52
PROVIDERS: ADMIT Family Medicine; ATTEND Family Medicine
DX: A41.9 Sepsis, unspecified organism (principal); K50.90 Crohn's disease, unspecified, without complications; K76.0 Fatty (change of) liver, not elsewhere classified; N76.4 Abscess of vulva; N76.2 Acute vulvitis; I10 Essential (primary) hypertension; M79.7 Fibromyalgia; K21.9 Gastro-esophageal reflux disease without esophagitis; F32.9 Major depressive disorder, single episode, unspecified; F17.210 Nicotine dependence, cigarettes, uncomplicated; L30.9 Dermatitis, unspecified
CPT/HCPCS: 74177; 76937; 76999; 80048; 80053; 80202; 81001; 83605; 83690; 84702; 85007; 85025; 85027; 85610; 85730; 87040; 87205; 87328; 87329; 87493; 96365; 96375; 96376; J0131; J1170; J1644; J2270; J2405; J3370; J7030; J7040; J7050; J7512; Q9967